=== PATIENT | female | born 1960 | race Caucasian/White ===

== ENCOUNTER → 2016-10-08 | Outpatient (REF) | payer OTHER ==
[2016-10-08 13:55] LABS: FREE T4 1.44 NG/DL (0.76-1.46)
== END ==
LOC: M LABDRAW1 12:44
PROVIDERS: ATTEND Family Medicine
DX: E03.9 Hypothyroidism, unspecified (principal)

== ENCOUNTER → 2016-10-24 | Outpatient (CLI) | payer BC, OTHER ==
--- NOTE | 2016-10-24 12:21 | REP ---
MRI COCCYX WITH AND WITHOUT CONTRAST: TECHNIQUE: Sagittal T1, STIR, coronal T1, T2 fat sat, axial T2, T1 fat sat, T2 fat sat, post IV gadolinium, sagittal and axial T1 fat sat with the intravenous administration of 11 mL of gadolinium. Correlation made with plain films at [facility] 10/17/2016. The distal end of the coccyx demonstrates mild ill-defined high signal on the T2-weighted images with mild associated marrow enhancement. There is mild surrounding soft tissue edema and enhancement. There is no soft tissue mass identified. No fluid collection is seen. Visualized intrapelvic structures appear unremarkable. IMPRESSION: There appears to be mild marrow edema in the distal end of the coccyx and mild surrounding soft tissue edema. No soft tissue mass. Findings are most consistent with stress related changes or bone bruise of the distal end of the coccyx. Signed by Michael Luu MD 10/25/2016 09:45 A
== END ==
LOC: M RAD 10:06
PROVIDERS: ATTEND Family Medicine
DX: M53.3 Sacrococcygeal disorders, not elsewhere classified (principal)
CPT/HCPCS: 72197; A9576

== ENCOUNTER → 2017-05-23 | Outpatient (CLI) | payer BC, OTHER ==
--- NOTE | 2017-05-23 15:09 | REPMRS ---
Patient History The patient states she has not had a clinical breast exam in over a year. No known family history of cancer. 2 benign excisional biopsies of the left breast. 2 benign excisional biopsies of the right breast. Benign stereotatic breast biopsy of the right breast. Digital Woman Screen Mammo: May 23, 2017 - Exam #: [id number] Bilateral CC and MLO view(s) were taken. Technologist: Laury Bush Technologist Prior study comparison: April 10, 2016, digital woman screen mammo performed at [facility]. February 18, 2015, digital woman screen mammo performed at [facility]. November 11, 2013, digital woman screen mammo performed at [facility]. FINDINGS: The breast tissue is heterogeneously dense. This may lower the sensitivity of mammography. There is a moderate amount of heterogeneously dense fibroglandular tissue which is fairly symmetric. There is no interval development of dominant mass, architectural distortion, or clustered microcalcification typical of malignancy. There has been no change in the appearance of the mammogram from the prior studies. ASSESSMENT: BI-RADS/ACR category 1 mammogram. Negative. Recommendation Routine screening mammogram of both breasts in 1 year (for women over age 40). This mammogram was interpreted with the aid of an FDA-approved computer-aided dectection system. Electronically Signed By: Brendon Siddiqui MD 05/23/17 0764
== END ==
LOC: M WHC 14:18
PROVIDERS: ATTEND Family Medicine
DX: Z12.31 Encounter for screening mammogram for malignant neoplasm of breast (principal)

== ENCOUNTER → 2017-06-19 | Outpatient (REF) | payer BC, OTHER ==
[2017-06-19 12:17] LABS: ALBUMIN 3.9 GM/DL (3.2-5.2); ALBUMIN/GLOBULIN RATIO 1.22 (1.00-1.93); ALKALINE PHOSPHATASE 97 U/L (45-117); ALT/SGPT 23 U/L (12-78); ANION GAP 7 MEQ/L (8-16); AST/SGOT 17 U/L (15-37); BILIRUBIN,TOTAL 0.5 MG/DL (0.2-1.0); BLOOD UREA NITROGEN 17 MG/DL (7-18); CALCIUM LEVEL 9.9 MG/DL (8.5-10.1); CARBON DIOXIDE LEVEL 26 MEQ/L (21-32); CHLORIDE LEVEL 108 MEQ/L (98-107); CHOLESTEROL LEVEL 156 MG/DL (<200); CREATININE FOR GFR 0.93 MG/DL (0.55-1.02); FREE T4 1.21 NG/DL (0.76-1.46); GLOMERULAR FILTRATION RATE > 60.0 (>51); GLUCOSE, FASTING 90 MG/DL (70-105); POTASSIUM SERUM 4.5 MEQ/L (3.5-5.1); SODIUM LEVEL 141 MEQ/L (136-145); TOTAL PROTEIN 7.1 GM/DL (6.4-8.2); TRIGLYCERIDES LEVEL 160 MG/DL (<150)
[2017-06-19 12:29] LABS: BASO # 0.1 10^3/uL (0.0-0.2); EOS # 0.1 10^3/uL (0.0-0.50); EOS % 2.5 % (0.0-3.0); IMMATURE GRANULOCYTE % 0.4 % (0-0); LYMPH # 1.7 10^3/uL (1.5-4.5); MEAN CORPUSCULAR HEMOGLOBIN 29.8 pg (27.0-33.0); MEAN CORPUSCULAR HGB CONC 32.2 g/dl (32.0-36.5); MEAN CORPUSCULAR VOLUME 92.8 fl (80.0-96.0); MONO # 0.3 10^3/uL (0.0-0.8); MONO % 5.8 % (0.0-5.0); NEUTROPHILS % 58.3 % (36.0-66.0); PLATELET COUNT, AUTOMATED 147 10^3/uL (150-450); RED CELL DISTRIBUTION WIDTH 14.5 % (11.5-14.5); WHITE BLOOD COUNT 5.2 10^3/uL (4.0-10.0)
== END ==
LOC: M LABDRAW1 10:29
PROVIDERS: ATTEND Family Medicine
DX: Z00.00 Encounter for general adult medical examination without abnormal findings (principal); I25.10 Atherosclerotic heart disease of native coronary artery without angina pectoris; E03.9 Hypothyroidism, unspecified

== ENCOUNTER → 2017-08-22 | Outpatient (REF) | payer BC, OTHER ==
[2017-08-22 13:03] LABS: FREE T4 1.31 NG/DL (0.76-1.46)
== END ==
LOC: M LABDRAW1 10:02
PROVIDERS: ATTEND Physician Assistant Medical
DX: E03.9 Hypothyroidism, unspecified (principal)

== ENCOUNTER 2017-11-28 14:21 | Emergency (ER) | payer BC, OTHER ==
[2017-11-28 15:32] LABS: BASO # 0.1 10^3/uL (0.0-0.2); BASO % 0.7 % (0.0-1.0); EOS # 0.2 10^3/uL (0.0-0.50); EOS % 3.1 % (0.0-3.0); HEMATOCRIT 41.6 % (36.0-47.0); HEMOGLOBIN 13.3 g/dl (12.0-16.0); IMMATURE GRANULOCYTE % 0.3 % (0-3.0); LYMPH # 1.5 10^3/uL (1.5-4.5); LYMPH % 22.7 % (24.0-44.0); MEAN CORPUSCULAR HEMOGLOBIN 29.2 pg (27.0-33.0); MEAN CORPUSCULAR VOLUME 91.4 fl (80.0-96.0); MONO # 0.5 10^3/uL (0.0-0.8); MONO % 7.7 % (0.0-5.0); NEUTROPHILS # 4.4 10^3/uL (1.8-7.7); NEUTROPHILS % 65.5 % (36.0-66.0); PLATELET COUNT, AUTOMATED 121 10^3/uL (150-450); RED BLOOD COUNT 4.55 10^6/uL (4.00-5.40); RED CELL DISTRIBUTION WIDTH 14.9 % (11.5-14.5); WHITE BLOOD COUNT 6.7 10^3/uL (4.0-10.0)
[2017-11-28 15:51] LABS: ANION GAP 7 MEQ/L (8-16); BLOOD UREA NITROGEN 15 MG/DL (7-18); CALCIUM LEVEL 9.3 MG/DL (8.5-10.1); CARBON DIOXIDE LEVEL 26 MEQ/L (21-32); CHLORIDE LEVEL 108 MEQ/L (98-107); CPK CREATINE PHOSPHOKINASE 74 U/L (26-192); CREATININE FOR GFR 1.07 MG/DL (0.55-1.30); GLOMERULAR FILTRATION RATE 55.9 (>51); GLUCOSE, FASTING 88 MG/DL (70-100); POTASSIUM SERUM 4.3 MEQ/L (3.5-5.1); SODIUM LEVEL 141 MEQ/L (136-145); TROPONIN I 0.04 NG/ML (< 0.10)
[2017-11-28 15:57] LABS: CK-MB VALUE MASS < 1.0 NG/ML (<3.6); MB/CK RELATIVE INDEX 1.35 (< OR =4)
[2017-11-28 15:59] LABS: NT-PRO BNP 281 PG/ML (<125)
[2017-11-28] MEDS: methylPREDNISolone INJ 125 MG/2 ML VIAL (J2930) IV (16:48)
[2017-11-28] MEDS: ALBUTEROL SULFATE 2.5 MG/0.5 ML INH NEB SOLN NEB (16:56)
[2017-11-28] MEDS ORDERED: ISOVUE-370 76% 100ML VIAL (Q9967) As Ordered (17:06)
== END 2017-11-28 19:47 | disposition home or self-care (01) ==
LOC: M ED 14:21
DX: J44.1 Chronic obstructive pulmonary disease with (acute) exacerbation (principal); R91.8 Other nonspecific abnormal finding of lung field; R05 Cough; I25.2 Old myocardial infarction; E03.9 Hypothyroidism, unspecified; G25.0 Essential tremor; Z95.5 Presence of coronary angioplasty implant and graft; F17.200 Nicotine dependence, unspecified, uncomplicated; Z88.5 Allergy status to narcotic agent; Z79.899 Other long term (current) drug therapy; Z79.02 Long term (current) use of antithrombotics/antiplatelets; Z79.82 Long term (current) use of aspirin
CPT/HCPCS: Q9967

== ENCOUNTER → 2017-12-02 | Outpatient (REF) | payer BC, OTHER ==
[2017-12-02 12:20] LABS: FREE T4 1.32 NG/DL (0.76-1.46)
== END ==
LOC: M LABDRAW1 09:30
DX: E03.9 Hypothyroidism, unspecified (principal)
CPT/HCPCS: 84443

== ENCOUNTER → 2017-12-26 | Outpatient (REF) | payer OTHER ==
[2017-12-26 14:00] LABS: CHOLESTEROL LEVEL 124 MG/DL (<200); CHOLESTEROL RISK RATIO 4.428 (<5); HDL CHOLESTEROL 28 MG/DL (>40); LDL CHOLESTEROL 71.8 MG/DL (<100); NON-HDL-C 96 MG/DL; TRIGLYCERIDES LEVEL 121 MG/DL (<150)
== END ==
LOC: M LABDRAW1 10:23
DX: E78.2 Mixed hyperlipidemia (principal); I25.10 Atherosclerotic heart disease of native coronary artery without angina pectoris

== ENCOUNTER → 2017-12-27 | Outpatient (CLI) | payer BC, OTHER | LOC: M RAD 08:43 | DX: I72.4 Aneurysm of artery of lower extremity (principal) ==

== ENCOUNTER → 2018-01-14 | Outpatient (REF) | payer BC, OTHER ==
[2018-01-14 13:14] LABS: FREE T4 1.13 NG/DL (0.76-1.46)
== END ==
LOC: M LABDRAW1 11:48
DX: E03.9 Hypothyroidism, unspecified (principal)
CPT/HCPCS: 84443

== ENCOUNTER → 2018-03-11 | Outpatient (REF) | payer OTHER ==
[2018-03-11 12:44] LABS: FREE T4 1.59 NG/DL (0.76-1.46)
[2018-03-11 12:44] LABS: THYROID STIMULATING HORMONE 0.922 uIU/ML (0.358-3.740)
== END ==
LOC: M LABDRAW1 10:19
DX: E03.9 Hypothyroidism, unspecified (principal)

== ENCOUNTER → 2018-03-11 | Outpatient (REF) | payer OTHER ==
[2018-03-11 12:36] LABS: ALT/SGPT 35 U/L (12-78); AST/SGOT 25 U/L (7-37); CHOLESTEROL LEVEL 108 MG/DL (<200); CHOLESTEROL RISK RATIO 3.724 (<5); CPK CREATINE PHOSPHOKINASE 73 U/L (26-192); HDL CHOLESTEROL 29 MG/DL (>40); LDL CHOLESTEROL 57.2 MG/DL (<100); NON-HDL-C 79 MG/DL; TRIGLYCERIDES LEVEL 109 MG/DL (<150)
== END ==
LOC: M LABDRAW1 10:17
DX: I25.10 Atherosclerotic heart disease of native coronary artery without angina pectoris (principal); E78.2 Mixed hyperlipidemia

== ENCOUNTER → 2018-06-06 | Outpatient (CLI) | payer BC, OTHER | LOC: M ST 11:24 | DX: R13.10 Dysphagia, unspecified (principal); K21.9 Gastro-esophageal reflux disease without esophagitis | CPT/HCPCS: 74230 ==

== ENCOUNTER → 2018-06-13 | Outpatient (REF) | payer BC, OTHER ==
[2018-06-13 13:01] LABS: FREE T4 1.46 NG/DL (0.76-1.46)
== END ==
LOC: M LABDRAW1 12:01
DX: E03.9 Hypothyroidism, unspecified (principal)
CPT/HCPCS: 84443

== ENCOUNTER → 2018-06-24 | Outpatient (CLI) | payer BC | LOC: M WHC 10:20 | DX: Z12.31 Encounter for screening mammogram for malignant neoplasm of breast (principal); M89.9 Disorder of bone, unspecified; Z92.89 Personal history of other medical treatment | CPT/HCPCS: 77067 ==

== ENCOUNTER → 2018-07-15 | Outpatient (REF) | payer OTHER ==
[2018-07-15 13:01] LABS: TOTAL 25(OH) VITAMIN D 23.7 NG/ML (30.0-100.0)
== END ==
LOC: M LABDRAW1 11:57
DX: M81.0 Age-related osteoporosis without current pathological fracture (principal)

== ENCOUNTER → 2018-12-15 | Outpatient (REF) | payer OTHER ==
[~2018-12-15] MED LIST: ASPI81TA26 PO; ATOR1TAB21; CARV3.12; CLOP75TA2 PO; LEVO75TA4; NORC1TAB7 PO; PRED20TA PO; TESS100C PO
[2018-12-15 11:59] LABS: BASO # 0.1 10^3/uL (0.0-0.2); EOS # 0.1 10^3/uL (0.0-0.50); EOS % 2.6 % (0.0-3.0); LYMPH # 1.4 10^3/uL (1.5-4.5); LYMPH % 26.7 % (24.0-44.0); MEAN CORPUSCULAR HEMOGLOBIN 29.7 pg (27.0-33.0); MEAN CORPUSCULAR HGB CONC 31.8 g/dl (32.0-36.5); MEAN CORPUSCULAR VOLUME 93.2 fl (80.0-96.0); MONO # 0.4 10^3/uL (0.0-0.8); MONO % 7.7 % (0.0-5.0); NEUTROPHILS # 3.2 10^3/uL (1.8-7.7); NEUTROPHILS % 61.8 % (36.0-66.0); PLATELET COUNT, AUTOMATED 129 10^3/uL (150-450); RED BLOOD COUNT 4.72 10^6/uL (4.00-5.40); WHITE BLOOD COUNT 5.1 10^3/uL (4.0-10.0)
[2018-12-15 12:34] LABS: ALBUMIN 3.8 GM/DL (3.2-5.2); ALT/SGPT 22 U/L (12-78); BILIRUBIN,TOTAL 0.5 MG/DL (0.2-1.0); BLOOD UREA NITROGEN 13 MG/DL (7-18); CALCIUM LEVEL 9.4 MG/DL (8.8-10.2); CARBON DIOXIDE LEVEL 28 MEQ/L (21-32); CHLORIDE LEVEL 105 MEQ/L (98-107); CHOLESTEROL LEVEL 118 MG/DL (<200); CHOLESTEROL RISK RATIO 3.933 (<5); CREATININE FOR GFR 0.97 MG/DL (0.55-1.30); FREE T4 1.38 NG/DL (0.76-1.46); GLOMERULAR FILTRATION RATE > 60.0 (>45); GLUCOSE, FASTING 90 MG/DL (70-100); HDL CHOLESTEROL 30 MG/DL (>40); LDL CHOLESTEROL 67 MG/DL (<100); NON-HDL-C 88 MG/DL; POTASSIUM SERUM 4.6 MEQ/L (3.5-5.1); SODIUM LEVEL 139 MEQ/L (136-145); THYROID STIMULATING HORMONE 0.497 uIU/ML (0.358-3.740); TRIGLYCERIDES LEVEL 106 MG/DL (<150)
== END ==
LOC: M LABDRAW1 11:37
PROVIDERS: ATTEND Physician Assistant
DX: E03.9 Hypothyroidism, unspecified (principal); I25.10 Atherosclerotic heart disease of native coronary artery without angina pectoris

== ENCOUNTER 2019-06-17 10:32 | Day surgery (SDC) | payer BC, OTHER ==
[~2019-06-17] VITALS: Ht 157.5 cm; Wt 49.0 kg
[~2019-06-17 10:32] MED LIST changes: -ATOR1TAB21; +ATOR1TAB21 PO; -CARV3.12; +CARV3.12 PO; +FAMO20TA PO; +LEVO100T5 PO; +LEVO88TA3 PO; +NITR0.4S14 SL; +NS 1,000 ML IV ONE
[2019-06-17] MEDS ORDERED: PROPOFOL 200 MG/20 ML VIAL As Ordered ONE (11:37)
[2019-06-17] MEDS ORDERED: LIDOCAINE 2% INJ 100 MG/5 ML SDV (FOR ANES.) As Ordered ONE (11:37)
--- NOTE | 2019-06-17 12:24 | ROOR ---
Patient Name: Debbi Don Procedure Date: 06/17/2019 11:48 AM Date of : 1960 Age: 58 Room: [facility] Gender: Female Note Status: Finalized Procedure: Upper Endoscopy + Biopsies Indications: Heartburn, Abdominal bloating, Early satiety Providers: Ubaldo Koehler MD Referring MD: Debbi Cervantes MD Requesting Provider: Medicines: Monitored Anesthesia Care Complications: No immediate complications. Procedure: Pre-Anesthesia Assessment: - The heart rate, respiratory rate, oxygen saturations, blood pressure, adequacy of pulmonary ventilation, and response to care were monitored throughout the procedure. The Endoscope was introduced through the mouth, and advanced to the second part of duodenum. The upper GI endoscopy was accomplished without difficulty. The patient tolerated the procedure well. Findings: The Z-line was regular and was found 40 cm from the incisors. Multiple biopsies were obtained with cold forceps for evaluation to rule out Patterson's Esophagus randomly at the gastroesophageal junction. Mucosal changes including ringed esophagus and crepe paper esophagus were found in the lower third of the esophagus. Biopsies were taken with a cold forceps for histology. Diffuse mildly erythematous mucosa without bleeding was found in the gastric antrum. Biopsies were taken with a cold forceps for Helicobacter pylori testing. The exam of the duodenum was otherwise normal. Impression: - Z-line regular, 40 cm from the incisors. - Esophageal mucosal changes suggestive of eosinophilic esophagitis. Biopsied. - Erythematous mucosa in the antrum. Biopsied. - Multiple biopsies were obtained at the gastroesophageal junction. - The examination was otherwise normal. Recommendation: - Patient has a contact number available for emergencies. The signs and symptoms of potential delayed complications were discussed with the patient. Return to normal activities tomorrow. Written discharge instructions were provided to the patient. - High fiber diet. - Discharge patient to home. - Follow an antireflux regimen. - Continue present medications. - Await pathology results. - Telephone GI clinic for pathology results in 1 week. - Return to referring physician. - The findings and recommendations were discussed with the patient's family. Ubaldo Koehler MD Ubaldo Koehler MD 06/17/2019 12:23:45 PM Electronically signed by Ubaldo Koehler MD Number of Addenda: 0 Note Initiated On: 06/17/2019 11:48 AM Estimated Blood Loss: Estimated blood loss: none.
--- NOTE | 2019-06-17 12:26 | ROOR ---
Patient Name: Debbi Don Procedure Date: 06/17/2019 11:49 AM Date of : 1960 Age: 58 Room: [facility] Gender: Female Note Status: Finalized Procedure: Total Colonoscopy to Cecum Indications: Screening for colorectal malignant neoplasm, Last colonoscopy: 2011 Providers: Ubaldo Koehler MD Referring MD: Debbi Cervantes MD Requesting Provider: Medicines: Monitored Anesthesia Care Complications: No immediate complications. Procedure: Pre-Anesthesia Assessment: - The heart rate, respiratory rate, oxygen saturations, blood pressure, adequacy of pulmonary ventilation, and response to care were monitored throughout the procedure. The Colonoscope was introduced through the anus and advanced to the cecum, identified by appendiceal orifice and ileocecal valve. The colonoscopy was performed without difficulty. The patient tolerated the procedure well. The quality of the bowel preparation was excellent. Findings: The perianal and digital rectal examinations were normal. Non-bleeding internal hemorrhoids were found during retroflexion. The hemorrhoids were small and Grade I (internal hemorrhoids that do not prolapse). No other significant abnormalities were identified in a careful examination of the remainder of the colon. The exam was otherwise without abnormality on direct and retroflexion views. Impression: - Non-bleeding internal hemorrhoids. - The examination was otherwise normal on direct and retroflexion views. - No specimens collected. - The exam was otherwise normal to the cecum. Recommendation: - Patient has a contact number available for emergencies. The signs and symptoms of potential delayed complications were discussed with the patient. Return to normal activities tomorrow. Written discharge instructions were provided to the patient. - High fiber diet. - Discharge patient to home. - Continue present medications. - Repeat colonoscopy in 10 years for screening purposes. - Return to referring physician. - The findings and recommendations were discussed with the patient's family. Ubaldo Koehler MD Ubaldo Koehler MD 06/17/2019 12:26:07 PM Electronically signed by Ubaldo Koehler MD Number of Addenda: 0 Note Initiated On: 06/17/2019 11:49 AM Estimated Blood Loss: Estimated blood loss: none.
[2019-06-17 12:55] VITALS: BP 110/78
== END 2019-06-17 13:15 | disposition home or self-care (01) ==
LOC: M OPP 10:32
PROVIDERS: ATTEND Internal Medicine Gastroenterology
DX: Z12.11 Encounter for screening for malignant neoplasm of colon (principal); K64.0 First degree hemorrhoids; R14.0 Abdominal distension (gaseous); R12 Heartburn; R13.10 Dysphagia, unspecified; R68.81 Early satiety; K22.8 Other specified diseases of esophagus; K31.89 Other diseases of stomach and duodenum; I25.10 Atherosclerotic heart disease of native coronary artery without angina pectoris; I25.2 Old myocardial infarction; I10 Essential (primary) hypertension; E78.5 Hyperlipidemia, unspecified; E03.9 Hypothyroidism, unspecified; Z95.5 Presence of coronary angioplasty implant and graft; R23.3 Spontaneous ecchymoses; K21.9 Gastro-esophageal reflux disease without esophagitis; M19.90 Unspecified osteoarthritis, unspecified site; J44.9 Chronic obstructive pulmonary disease, unspecified; Z87.891 Personal history of nicotine dependence; Z88.5 Allergy status to narcotic agent; Z79.82 Long term (current) use of aspirin; Z79.899 Other long term (current) drug therapy
CPT/HCPCS: 43239; 88305; G0121

== ENCOUNTER → 2019-06-25 | Outpatient (CLI) | payer BC, OTHER ==
[~2019-06-25] MED LIST changes: -NS 1,000 ML IV ONE
--- NOTE | 2019-06-25 13:57 | REP ---
Gastric emptying nuclear scintigraphy: History: Early satiety. Abdominal distension. Technique: 1.05 mCi of technetium-99m sulfur colloid was ingested in two scrambled eggs and 6 ounces of water and sequential anterior and posterior images are acquired for an 89-minute imaging observation period. Regions of interest are drawn around the stomach to plot gastric emptying. Scintigraphic findings: Expected T1/2 is 90 minutes. 45 % emptying is observed in this patient during the 89-minute imaging observation period, for a calculated T1/2 in this patient of 99 minutes. Impression: Normal gastric emptying. Electronically Signed by Markie Siddiqui MD 06/25/2019 01:48 P
== END ==
LOC: M RAD 08:36
PROVIDERS: ATTEND Internal Medicine Gastroenterology
DX: R68.81 Early satiety (principal); R14.0 Abdominal distension (gaseous); K64.0 First degree hemorrhoids
CPT/HCPCS: 78264; A9541

== ENCOUNTER → 2019-09-18 | Outpatient (CLI) | payer BC, OTHER ==
--- NOTE | 2019-09-18 11:44 | REPMRS ---
Patient History The patient states she has not had a clinical breast exam in over a year. No known family history of cancer. 2 benign excisional biopsies of the left breast. 2 benign excisional biopsies of the right breast. Benign stereotatic breast biopsy of the right breast. No Hormone Replacement Therapy Digital Woman Screen Mammo: September 18, 2019 - Exam #: [id number] Bilateral CC and MLO view(s) were taken. Technologist: Yael Torres, Technologist Prior study comparison: June 24, 2018, bilateral digital woman screen mammo performed at [facility]. May 23, 2017, digital woman screen mammo performed at [facility]. April 10, 2016, digital woman screen mammo performed at [facility]. FINDINGS: The breast tissue is heterogeneously dense. This may lower the sensitivity of mammography. There is a moderate amount of heterogeneously dense fibroglandular tissue which is fairly symmetric. There is no interval development of dominant mass, architectural distortion, or grouped microcalcification typical of malignancy. There has been no change in the appearance of the mammogram from the prior studies. 3-D tomosynthesis shows no additional findings. Assessment: BI-RADS/ACR category 1 mammogram. Negative Mammogram. Recommendation Routine screening mammogram of both breasts in 1 year (for women over age 40). This patient's Lifetime Breast Cancer RIsk is estimated at 7.1 %. This mammogram was interpreted with the aid of an FDA-approved computer-aided dectection system. Electronically Signed By: Brendon Siddiqui MD 09/18/19 0537
== END ==
LOC: M WHC 09:24
PROVIDERS: ATTEND Family Medicine
DX: Z12.31 Encounter for screening mammogram for malignant neoplasm of breast (principal)

== ENCOUNTER → 2019-10-10 | Outpatient (REF) | payer OTHER | LOC: M LAB REF 15:50 | PROVIDERS: ATTEND Physician Assistant | DX: N39.0 Urinary tract infection, site not specified (principal) ==

== ENCOUNTER 2019-12-14 13:30 | Emergency (ER) | payer BC, OTHER ==
[~2019-12-14] VITALS: Ht 160 cm; Wt 52.3 kg
[2019-12-14] MEDS ORDERED: ASPI325T55 PO (13:48)
[2019-12-14] MEDS ORDERED: ALBUTEROL 90 MCG/ACT 8GM HFA INHALER INH ONE (14:00)
[2019-12-14] MEDS ORDERED: NITROGLYCERIN 2% OINT 1 GM *U/D* PKT TOP ONE (14:00)
[2019-12-14 14:01] VITALS: BP 134/80
[2019-12-14 14:08] LABS: BASO # 0.1 10^3/uL (0.0-0.2); EOS # 0.2 10^3/uL (0.0-0.5); EOS % 2.5 % (0.0-3.0); HEMATOCRIT 43.7 % (36.0-47.0); LYMPH # 1.3 10^3/uL (1.5-5.0); LYMPH % 20.8 % (24.0-44.0); MEAN CORPUSCULAR HEMOGLOBIN 29.8 pg (27.0-33.0); MONO # 0.3 10^3/uL (0.0-0.8); MONO % 5.5 % (0.0-5.0); NEUTROPHILS # 4.2 10^3/uL (1.5-8.5); NEUTROPHILS % 69.9 % (36.0-66.0); PLATELET COUNT, AUTOMATED 163 10^3/uL (150-450)
[2019-12-14 14:19] LABS: INR 0.99; PROTHROMBIN TIME 12.8 SECONDS (11.8-14.0)
[2019-12-14 14:20] LABS: PARTIAL THROMBOPLASTIN TIME 33.1 SECONDS (25.0-38.4)
[2019-12-14] MEDS ORDERED: ISOVUE-370 76% 100ML VIAL (Q9967) As Ordered ONE (14:39)
[2019-12-14 14:43] LABS: ALBUMIN 3.8 GM/DL (3.2-5.2); ALT/SGPT 16 U/L (12-78); BILIRUBIN,DIRECT 0.1 MG/DL (0.0-0.2); BILIRUBIN,TOTAL 0.5 MG/DL (0.2-1.0); CK-MB VALUE MASS < 1.0 NG/ML (<3.6); CPK CREATINE PHOSPHOKINASE 67 U/L (26-192); LIPASE 102 U/L (73-393); MB/CK RELATIVE INDEX 1.49 (< OR =4); NT-PRO BNP 453 PG/ML (<125); THYROID STIMULATING HORMONE 0.106 uIU/ML (0.358-3.740); TROPONIN I < 0.02 NG/ML (< 0.10)
--- NOTE | 2019-12-14 14:47 | REP ---
PORTABLE CHEST X-RAY: Two views. HISTORY: Chest pain. COMPARISON CHEST X-RAY: November 28, 2017. FINDINGS: Lungs are somewhat hyperinflated consistent with COPD. No infiltrate is seen. Pleural angles are sharp. Heart is not enlarged. The aorta somewhat tortuous. Monitoring electrodes are seen. IMPRESSION: Hyperinflation consistent with COPD. No infiltrate seen. Electronically Signed by Markie Siddiqui MD 12/14/2019 03:06 P
[2019-12-14 15:34] LABS: FREE T4 1.59 NG/DL (0.76-1.46)
[2019-12-14] MEDS ORDERED: dexameTHASONE 20MG/5ML VIAL (J1100 PER 1MG) IV ONE (15:45)
--- NOTE | 2019-12-14 16:39 | REP ---
HISTORY: Pulmonary embolism suspected due to pain and COPD. COMPARISON: All reviewed. CONTRAST: 100 mL Isovue-370. There is excellent visualization of the pulmonary arterial vasculature. There is no pulmonary embolus. There is no mediastinal or hilar adenopathy. There are no pleural or pericardial effusions. There is no change in the imaged upper abdomen or imaged osseous structures. Evaluation of the lung kim show no changes. There is COPD with pulmonary nodules. IMPRESSION: No change from the prior exam. There is no evidence of pulmonary embolism. Electronically Signed by Avery Vang DO 12/14/2019 04:46 P
[2019-12-14 18:49] LABS: CK-MB VALUE MASS < 1.0 NG/ML (<3.6); CPK CREATINE PHOSPHOKINASE 61 U/L (26-192); MB/CK RELATIVE INDEX 1.64 (< OR =4); TROPONIN I < 0.02 NG/ML (< 0.10)
[2019-12-14 19:30] VITALS: BP 124/79
[2019-12-14] MEDS ORDERED: PRED20TA PO (19:54)
[2019-12-14] MEDS ORDERED: LEVO75TA4 PO (19:54)
--- NOTE | 2019-12-15 08:32 | ECGEPIP ---
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
--- NOTE | 2019-12-15 08:43 | ECGEPIP ---
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
== END 2019-12-14 20:04 | disposition home or self-care (01) ==
LOC: M ED 13:30
DX: J44.9 Chronic obstructive pulmonary disease, unspecified (principal); R07.89 Other chest pain; E03.9 Hypothyroidism, unspecified; I25.10 Atherosclerotic heart disease of native coronary artery without angina pectoris; K21.9 Gastro-esophageal reflux disease without esophagitis; Z87.891 Personal history of nicotine dependence; Z79.82 Long term (current) use of aspirin; Z79.899 Other long term (current) drug therapy; Z88.5 Allergy status to narcotic agent
CPT/HCPCS: 71045; 71275; 80047; 80076; 82550; 82553; 83690; 83880; 84439; 84443; 84484; 85025; 85610; 85730; 86140; 93005; 93041; 94640; 94760; 96374; 99285; J1100; Q9967

== ENCOUNTER → 2020-01-27 | Outpatient (REF) | payer OTHER ==
[~2020-01-27] MED LIST changes: +ASPI325T55 PO; +LEVO75TA4 PO
[2020-01-27 17:33] LABS: ALBUMIN 3.8 GM/DL (3.2-5.2); ALT/SGPT 23 U/L (12-78); BILIRUBIN,TOTAL 0.4 MG/DL (0.2-1.0); BLOOD UREA NITROGEN 12 MG/DL (7-18); CALCIUM LEVEL 9.4 MG/DL (8.8-10.2); CARBON DIOXIDE LEVEL 30 MEQ/L (21-32); CHLORIDE LEVEL 103 MEQ/L (98-107); CHOLESTEROL LEVEL 131 MG/DL (<200); CHOLESTEROL RISK RATIO 4.517 (<5); CREATININE FOR GFR 0.99 MG/DL (0.55-1.30); FREE T4 1.53 NG/DL (0.76-1.46); GLOMERULAR FILTRATION RATE > 60.0 (>45); GLUCOSE, FASTING 127 MG/DL (70-100); HDL CHOLESTEROL 29 MG/DL (>40); LDL CHOLESTEROL 74 MG/DL (<100); NON-HDL-C 102 MG/DL; POTASSIUM SERUM 4.3 MEQ/L (3.5-5.1); SODIUM LEVEL 139 MEQ/L (136-145); TRIGLYCERIDES LEVEL 141 MG/DL (<150)
== END ==
LOC: M LABDRWAD 16:17
PROVIDERS: ATTEND Nurse Practitioner Family
DX: E03.9 Hypothyroidism, unspecified (principal); J44.1 Chronic obstructive pulmonary disease with (acute) exacerbation; I25.10 Atherosclerotic heart disease of native coronary artery without angina pectoris

== ENCOUNTER → 2020-02-11 | Outpatient (REF) | payer OTHER ==
[2020-02-11 17:02] LABS: HEMATOCRIT 45.2 % (36.0-47.0); HEMOGLOBIN 14.5 g/dl (12.0-15.5); MEAN CORPUSCULAR HEMOGLOBIN 29.5 pg (27.0-33.0); MEAN CORPUSCULAR HGB CONC 32.1 g/dl (32.0-36.5); MEAN CORPUSCULAR VOLUME 91.9 fl (80.0-96.0); PLATELET COUNT, AUTOMATED 191 10^3/uL (150-450); RED BLOOD COUNT 4.92 10^6/uL (4.00-5.40); WHITE BLOOD COUNT 6.6 10^3/uL (4.0-10.0)
[2020-02-11 17:03] LABS: BLOOD UREA NITROGEN 11 MG/DL (7-18); CALCIUM LEVEL 9.4 MG/DL (8.8-10.2); CARBON DIOXIDE LEVEL 30 MEQ/L (21-32); CHLORIDE LEVEL 104 MEQ/L (98-107); CREATININE FOR GFR 0.91 MG/DL (0.55-1.30); GLOMERULAR FILTRATION RATE > 60.0 (>45); GLUCOSE, FASTING 88 MG/DL (70-100); MAGNESIUM LEVEL 2.3 MG/DL (1.8-2.4); POTASSIUM SERUM 4.8 MEQ/L (3.5-5.1); SODIUM LEVEL 137 MEQ/L (136-145)
== END ==
LOC: M LABDRWAD 16:16
PROVIDERS: ATTEND Nurse Practitioner Adult Health
DX: I25.119 Atherosclerotic heart disease of native coronary artery with unspecified angina pectoris (principal); I49.3 Ventricular premature depolarization; R00.2 Palpitations

== ENCOUNTER → 2020-02-12 | Outpatient (CLI) | payer BC, OTHER ==
--- NOTE | 2020-02-13 10:52 | REP ---
REASON FOR EXAM: Pain. No trauma. No priors. FINDINGS: No acute fracture or destructive osseous lesion. Electronically Signed by Avery Vang DO 02/15/2020 10:55 A
== END ==
LOC: M ADAMS 16:02
PROVIDERS: ATTEND Physician Assistant
DX: M79.604 Pain in right leg (principal)

== ENCOUNTER → 2020-08-30 | Outpatient (REF) | payer OTHER ==
[2020-08-30 13:44] LABS: ALBUMIN 3.6 GM/DL (3.2-5.2); BILIRUBIN,TOTAL 0.6 MG/DL (0.2-1.0); CALCIUM LEVEL 9.4 MG/DL (8.8-10.2); FREE T4 1.38 NG/DL (0.76-1.46); GLOMERULAR FILTRATION RATE 59.8 (>45); THYROID STIMULATING HORMONE 3.65 uIU/ML (0.358-3.740); TOTAL PROTEIN 6.9 GM/DL (6.4-8.2)
== END ==
LOC: M LABDRWAD 12:19
PROVIDERS: ATTEND Nurse Practitioner Family
DX: E03.9 Hypothyroidism, unspecified (principal)

== ENCOUNTER → 2020-09-19 | Outpatient (CLI) | payer BC ==
--- NOTE | 2020-09-19 14:54 | DEXAMM ---
INDICATION: M89.9 DISORDER OF BONE. COMPARISON: 06/24/2018 as well as other prior exams. TECHNIQUE: Bone density was measured using dual-energy x-ray absorptiometry (DEXA). FINDINGS: AP SPINE L1-L4 BMD 0.797 g/cm2 Young Adult T-Score -3.2 Age Matched Z-Score -1.9. LT FEMUR, TOTAL BMD 0.730 g/cm2 Young Adult T-Score -2.2 Age Matched Z-Score -1.2. LT NECK BMD 0.796 g/cm2 Young Adult T-Score -1.7 Age Matched Z-Score -0.4. RT FEMUR, TOTAL BMD 0.680 g/cm2 Young Adult T-Score -2.6 Age Matched Z-Score -1.6. RT NECK BMD 0.785 g/cm2 Young Adult T-Score -1.8 Age Matched Z-Score -0.5. IMPRESSION: There is osteoporosis of the spine. There is low bone density of the left hip. There is low bone density of the right hip. The density of the spine has decreased 30.1% since the initial exam on 11/13/2002. The density of the spine decrease 10.0% since most recent exam on 06/24/2018. The density of the left hip has decreased 27.9% since initial exam on 11/13/2002. The density of the left hip has decreased 8.8% since most recent exam on 06/24/2018. The density of the right hip has decrease 30.8% since the initial exam on 11/13/2002. The density of the right hip has decrease 6.1% since the most recent exam on 06/24/2018. FOLLOW-UP: Recommendation for the next bone density exam: 2 years. <Electronically signed by Michael Luu > 09/19/20 4555
--- NOTE | 2020-09-20 07:15 | REPMRS ---
Patient History The patient states she has not had a clinical breast exam in over a year. No known family history of cancer. 2 benign excisional biopsies of the left breast. 2 benign excisional biopsies of the right breast. Benign stereotatic breast biopsy of the right breast. No Hormone Replacement Therapy 3D TOMOSYNTHESIS WAS PERFORMED. The [facility] lifetime risk for breast cancer is 6.9%. Volpara breast density c. Digital Woman Screen Mammo: September 19, 2020 - Exam #: [id number] Bilateral CC and MLO view(s) were taken. Technologist: Shirlene Johnston, Technologist Prior study comparison: September 18, 2019, bilateral digital woman screen mammo performed at [facility]. June 24, 2018, bilateral digital woman screen mammo performed at [facility]. FINDINGS: The breast tissue is heterogeneously dense. This may lower the sensitivity of mammography. There has been no change in the appearance of the mammogram from the prior studies. There is a moderate amount of residual fibroglandular tissue which is fairly symmetric. There is no interval development of dominant mass, areas of architectural distortion, or clustered microcalcification typical of malignancy. Assessment: BI-RADS/ACR category 1 mammogram. Negative Mammogram. Recommendation Routine screening mammogram in 1 year (for women over age 40). This mammogram was interpreted with the aid of an FDA-approved computer-aided dectection system. Electronically Signed By: Michael Luu MD 09/19/20 1419
== END ==
LOC: M WHC 12:58
PROVIDERS: ATTEND Family Medicine
DX: Z12.31 Encounter for screening mammogram for malignant neoplasm of breast (principal); M81.0 Age-related osteoporosis without current pathological fracture

== ENCOUNTER 2020-09-24 09:54 | Emergency (ER) | payer BC, OTHER ==
[~2020-09-24] VITALS: Ht 160 cm; Wt 52.6 kg
[2020-09-24 10:22] LABS: BASO # 0.1 10^3/uL (0.0-0.2); BASO % 0.9 % (0.0-1.0); EOS # 0.1 10^3/uL (0.0-0.5); EOS % 2.7 % (0.0-3.0); HEMATOCRIT 44.1 % (36.0-47.0); HEMOGLOBIN 13.5 g/dl (12.0-15.5); LYMPH # 1.4 10^3/uL (1.5-5.0); LYMPH % 25.9 % (24.0-44.0); MEAN CORPUSCULAR HEMOGLOBIN 28.8 pg (27.0-33.0); MEAN CORPUSCULAR HGB CONC 30.6 g/dl (32.0-36.5); MONO # 0.3 10^3/uL (0.0-0.8); MONO % 5.9 % (0.0-5.0); NEUTROPHILS # 3.4 10^3/uL (1.5-8.5); NEUTROPHILS % 64.2 % (36.0-66.0); PLATELET COUNT, AUTOMATED 148 10^3/uL (150-450); RED BLOOD COUNT 4.69 10^6/uL (4.00-5.40); WHITE BLOOD COUNT 5.3 10^3/uL (4.0-10.0)
[2020-09-24] MEDS ORDERED: ALBU8.5H INH (10:22)
[2020-09-24] MEDS ORDERED: LEVO100T5 PO (10:22)
[2020-09-24] MEDS ORDERED: ATOR40TA75 PO (10:22)
--- NOTE | 2020-09-24 10:27 | REP ---
INDICATION: CHEST PAIN. COMPARISON: 12/14/2019. TECHNIQUE: SINGLE PORTABLE AP VIEW OF THE CHEST WAS PERFORMED. FINDINGS: Stable interstitial fibrotic changes are seen bilaterally. There is no acute infiltrate. The heart is normal in size. There is mild tortuosity of the thoracic aorta. The mediastinal silhouette is unchanged. There is slight elevation of left hemidiaphragm. IMPRESSION: Stable chronic findings with no evidence of acute pulmonary disease. <Electronically signed by Michael Luu > 09/24/20 1024
[2020-09-24] MEDS ORDERED: NITROGLYCERIN 0.4 MG SUBL TABLET As Ordered ONE (10:29)
[2020-09-24] MEDS ORDERED: fentaNYL 100 MCG/2 ML INJECTION (J3010) IV PRN (10:30)
[2020-09-24] MEDS: NITROGLYCERIN 0.4 MG SUBL TABLET SL PRN ×3 (10:33→10:47)
[2020-09-24] MEDS ORDERED: HEPARIN DRIP 25,000 UNITS in IV 1 EA IV SCH (10:35)
[2020-09-24] MEDS ORDERED: HEPARIN 25,000 UNITS/250 ML D5W BAG (100 UNITS/ML) (J1644 PER 1000UNITS) As Ordered ONE (10:39)
[2020-09-24] MEDS ORDERED: HEPARIN SOD (PORCINE) 5000UNITS/ML 1ML VIAL/SYRINGE IV ONE (10:45)
[2020-09-24 10:46] LABS: ALBUMIN 3.7 GM/DL (3.2-5.2); BILIRUBIN,DIRECT 0.1 MG/DL (0.0-0.2); BILIRUBIN,TOTAL 0.4 MG/DL (0.2-1.0); TOTAL PROTEIN 6.9 GM/DL (6.4-8.2)
[2020-09-24 10:59] VITALS: BP 130/75
[2020-09-24] MEDS ORDERED: NITROGLYCERIN 2% OINT 1 GM *U/D* PKT TOP ONE (11:00)
--- OUTSIDE RECORDS SUMMARY | 2020-09-24 11:03 | CCD | Continuity of Care Document ---
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 Name Role Phone Debbi Cervantes MD AUTM [phone] Problems Active Problems Provider Date Angina pectoris Reji Carbajal MD Onset: 12/31/2011 Coronary arteriosclerosis Reji Carbajal MD Onset: 012 Benign essential hypertension Reji Carbajal MD Onset: Acute ST segment elevation myocardial in farction involving left anterior descending coronary artery [place] NP Onset: 10/24/2015 Mixed hyperlipidemia [place] NP Onset: 10/24/2015 Cardiomyopathy, unspecified Nessa Davis MD Onset: 10/01 Screening for cardiovascular system disease Cal Contreras i Onset: 03/28/2018 Dyspnea Colette Jacobo NP Onset: 09/30/2018 Atherosclerotic heart disease of [place] coronary artery with unstable angina pectoris Colette Jacobo NP Onset: 09/30/2018 Chronic obstructive lung disease Colette Jacobo NP Onset: 09/30/2018 Abnormal results of cardiovascular function studies Cal Ramsay Onset: 10/02/2018 Preoperative cardiovascular examination Delmi Barber Onset: 04/06/2019 Palpitations Colette Jacobo NP Onset: 02/10/2020 Premature beats Colette Jacobo NP Onset: 02/10/2020 Dietary management surveillance Colette Jacobo NP Onset: 0 10/07/2019 Patient post percutaneous transluminal coronary angioplasty Colette Jacobo NP Onset: 10/07/2019 Social History Type Date Description Comments Sex Unknown Tobacco Use Start: Unknown End: Unknown Quit ETOH Use Denies alcohol use Tobacco Use Start: Unknown End: Unknown Patient is a former smoker Smoking Status Reviewed: 08/30/20 Patient is a former smoker Allergies, Adverse Reactions, Alerts Active Allergies Reaction Severity Comments Date Morphine 12/31/2011 Medications Active Medications SIG Qnty Indications Ordering Provide r Date Atorvastatin Calcium 40mg Tablets take one tablet by mouth at bedtime 90tabs Edilberto Barber 12/31/2017 Nitrostat 0.4mg Tablets Sub 1 tab under tongue, repeat q5 mins x2, as needed for chest pain 25tabs Cal Barber 01/24/2016 Aspirin 81mg Chewtabs 1 by mouth every day Reji Carbajal MD 10/24/2015 Carvedilol 3.125mg Tablets 1 by mouth twice a day 180tabs Cal Barber Levothyroxine Sodium 75mcg Tablets 1 by mouth every day Unknown Omeprazole 40mg Capsules DR 1 by mouth every day prn Unknown Magnesium 500mg Capsules 1 by mouth every day prn Unknown Florajen Acidophilus Capsules 1 by mouth every day Unknown Immunizations CPT Code Status Date Vaccine Lot # U-Flu Refused 02/10/2020 Influenza,Unspecified U-Pneum Refused 04/06/2019 Pneumococcal,Unspecified U-Flu Refused 04/06/2019 Influenza,Unspecified Vital Signs Date Vital Result Comment 08/31/2020 2:55pm Weight 112.00 lb Height 63 inches 5'3" BMI (Body Mass Index) 19.8 kg/m2 BSA (Body Surface Area) 1.51 m2 03/01/2020 11:45am BP Systolic Right Arm 112 mmHg BP Diastolic Right Arm 72 mmHg Heart Rate 74 /min Weight 110.38 lb Height 63 inches 5'3" BMI (Body Mass Index) 19.5 kg/m2 High Density Lipid 29 Low Density Lipid 74 01/27/20 Triglycerides 141 Total Cholesterol 131 BSA (Body Surface Area) 1.50 m2 Results Description No Information Available Procedures Description No Information Available Medical Devices Description No Information Available Encounters Type Date Location Provider Dx Diagnosis Office Visit 08/31/2020 8:45a [facility] Cal Yang I25.119 Athscl heart disease of marie ve cor art w unsp ang pctrs Z98.61 Coronary angioplasty status E78.2 Mixed hyperlipidemia I10 Essential (primary) hyperten tigist Assessments Date Code Description Provider 08/31/2020 I25.119 Atherosclerotic hear t disease of [place] coronary artery with unspecified angina pectoris Cal Barber 08/31/2020 Z98.61 Coronary angioplasty status Cal Yang 08/31/2020 E78.2 Mixed hyperlipidemia Cal Quintero 08/31/2020 I10 Essential (primary) hypertension Cal Barber Plan of Treatment Future Appointment(s):* 03/02/2021 9:30 am - Colette Jacobo NP at [facility] 12/11/2017 - [facility] I25.10 Athscl heart disease of [place] coronary artery w/o ang pctrs * E78.2 Mixed hyperlipidemia * I10 Essential (primary) hypertension* New Labs:* Lipid, Ordered: 12/11/17 Functional Status Description No Information Available Mental Status Description No Information Available Referrals Description No Information Available
--- OUTSIDE RECORDS SUMMARY | 2020-09-24 11:03 | CCD ---
Continuity of Care Document (CCD) Created on: 08/31/2020 Debbi Don External Reference #: [id number] : [id number] Sex: Female Author Author Debbi RODRIGUEZ [facility] Organization Unknown Address [address] [place] [address] Phone [phone] Care Team Providers Care Electorate Officer Name Role Phone Ubaldo Koehler M.D. & Associate AUTM [phone] Sia Ayon M.D. AUTM [phone] Reji Carbajal MD AUTM [phone] AUTM [phone] Tim Cobb DPM AUTM [phone] Problems Active Problems Provider Date Hypothyroidism Debbi Cervantes M.D. Onset: 02/07/20 11 Social History Type Date Description Comments Sex Unknown Tobacco Use Start: Unknown Never Used Smokeless Tobacco ETOH Use Rarely consumes alcohol Recreational Drug Use Denies Drug Use Tobacco Use Start: Unknown End: Unknown Patient is a former smoker quit 10/08/15 after having a heart attack. Smoked 3/4 ppd x 40 years Smoking Status Reviewed: 07/27/20 Patient is a former smoker qu it 10/08/15 after having a heart attack. Smoked 3/4 ppd x 40 years Exercise Type/Frequency Exercises regularly trie s to walk several times a week Tattoo/Piercing Tattoo 1 Tattoo/Piercing Pierced ears Sun Exposure Minimum amount of sun exposure Sun Exposure Does not use sunscreen Seat Belt/Car Seat Always uses seat belt Bike Helmet Never Does not bike ri de Smoke Alarms Yes Smoke Alarms Carbon Monoxide Detector: Yes Allergies, Adverse Reactions, Alerts Active Allergies Reaction Severity Comments Date Morphine vomiting, hot feeling, low pulse rate 10/25/2010 Medications Active Medications SIG Qnty Indications Ordering Provide r Date Fluticasone Propionate Nasal [place] Aller gy Relief 24- Hour 50mcg/Act Suspension 2 sprays each nare daily as needed 9.900ml J30.9 Irene Rodriguez FNP 02/05/2020 Levothyroxine Sodium 75mcg Tablets 1 by mouth every day 90tabs E03.9 Irene Rodriguez FNP 12/15/2019 Hydroxyzine HCL 10mg Tablets 1-2 tab by mouth three times a day as needed anxiety 60tabs F43.22 Irene Mcgill ch, FNP 12/15/2019 Calcium 600 High Potency 600mg Tab lets one po bid Debbi Cervantes M.D. 018 Vitamin D-3 1000Unit Capsules 1 by mouth bid Debbi Cervantes M.D. 018 Aspir-[address] 1 by mouth every day Unknown Carvedilol 3.125mg Tablets 1 tab by mouth twice a day Unknown Nitroglycerin Tablets one every 5 min. SL for chest pain Unknown Atorvastatin Calcium 40mg Tablets take one tablet by mouth every day for cholesterol Unknow n Proair HFA 108(90Base) mcg/Act Aer osol 2 puffs every 4 hours as needed 8.500gm Debbi Cervantes M.D. Eq Omeprazole Magnesium 20mg Capsu les DR Take one capsule by mouth daily as needed Unknow n History Medications Amoxicillin 875mg Tablets 1 by mouth twice a day x 10 days 20tabs J01.90 Debbi Cervantes M.D. 020 - 07/29/2020 Immunizations Description No Information Available Vital Signs Date Vital Result Comment 07/27/2020 9:53am BP Systolic 131 mmHg BP Diastolic 82 mmHg Heart Rate 85 /min Body Temperature 97.2 F Respiratory Rate 16 /min Height 63.25 inches 5'3.25" Weight 115.00 lb Peak Expiratory Flow Rate 332 Estimated Peak Flow Rate [place] Body Weight 115 lb BMI (Body Mass Index) 20.2 kg/m2 07/19/2020 9:09am BP Systolic 142 mmHg BP Diastolic 87 mmHg BP Systolic Recheck 136 mmHg BP Diastolic Recheck 90 mmHg Heart Rate 92 /min Body Temperature 97.3 F Respiratory Rate 16 /min Height 63.25 inches 5'3.25" Weight 113.38 lb O2 % BldC Oximetry 96 % Peak Expiratory Flow Rate 332 Estimated Peak Flow Rate [place] Body Weight 115 lb BMI (Body Mass Index) 19.9 kg/m2 Results Test Acquired Date Facility Test Result H/L Range Note Comprehensive Metabolic Profil 08/30/2020 [facility] [phone] Glucose, Fasting 90 mg/dL Normal 70-100 Blood Urea Nitrogen 12 mg/dL Normal 7-18 Creatinine For GFR 1.00 mg/dL Normal 0.55-1.30 Glomerular Filtration Rate 59.8 Normal >45 1 Sodium Level 139 mEq/L Normal 136-145 Potassium Serum 5.0 mEq/L Normal 3.5-5.1 Chloride Level 107 mEq/L Normal 98-107 Carbon Dioxide Level 27 mEq/L Normal 21-32 Anion Gap 5 mEq/L Low 8-16 Calcium Level 9.4 mg/dL Normal 8.8-10.2 Ast/Sgot 9 U/L Normal 7-37 Alt/SGPT 16 U/L Normal 12-78 Alkaline Phosphatase 131 U/L High 45-117 Bilirubin,Total 0.6 mg/dL Normal 0.2-1.0 Total Protein 6.9 GM/DL Normal 6.4-8.2 Albumin 3.6 GM/DL Normal 3.2-5.2 Albumin/Globulin Ratio 1.1 Low 1.2-2.2 FT4&TSH Panel 08/30/2020 [facility] [phone] Thyroid Stimulating Hormone 3.650 uIU/ML Normal 0. 358-3.740 Free T4 1.38 ng/dL Normal 0.76-1.46 1 Units are mL/min/1.73 m2 Chronic Kidney Disease Staging per NKF: Stage I & II GFR >=60 Normal to Mildly Decreased Stage III GFR 30-59 Moderately Decreased Stage IV GFR 15-29 Severely Decreased Stage V GFR <15 Very Little GFR Left ESRD GFR <15 on [employer] Procedures Date Code Description Status 09/18/2019 [id number] Mammogram Completed 06/24/2018 [id number] Mammogram Completed 06/24/2018 [id number] Bone Mineral Density Test Comple paula 05/23/2017 [id number] Mammogram Completed 04/10/2016 [id number] Mammogram Completed Medical Devices Description No Information Available Encounters Type Date Location Provider Dx Diagnosis Office Visit 07/27/2020 9:45a Main Office Debbi Cervantes M.D. J 34.89 Other specified disorders of nose and nasal sinuses Office Visit 07/19/2020 9:00a Main Office Debbi Cervantes M.D. E 03.9 Hypothyroidism, unspecified J44.9 Chronic obstructive pulmonar y disease, unspecified F43.22 Adjustment disorder with anx iety J01.90 Acute sinusitis, unspecified Z00.00 Encntr for general adult med ical exam w/o abnormal findings Assessments Date Code Description Provider 07/27/2020 J34.89 Other specified disorders of nos e and nasal sinuses Debbi Cervantes M.D. 07/19/2020 E03.9 Hypothyroidism, unspecified Will Debbi villatoro M.D. 07/19/2020 J44.9 Chronic obstructive pulmonary di sease, unspecified Debbi Cervantes M.D. 07/19/2020 F43.22 Adjustment disorder with anxiety Debbi Cervantes M.D. 07/19/2020 J01.90 Acute sinusitis, unspecified Rush Debbi hernández M.D. 07/19/2020 Z00.00 Encounter for [facility] adult medical examination without abnormal findings Debbi Cervantes M.D. Plan of Treatment 07/27/2020 - Debbi Cervantes M.D.* J34.89 Other specified disorders of nose and nasal sinuses* Comments:* s/p sinus surgeries. Slight inflamed, but already on ABX. Recommend Tylenol and ice packs for supportive care. If persists will have to refer back to ENT. Functional Status Functional Condition Comment Date Status Complete lower and upper and lower dentures Active Independent with all ADL's Activ e Bifocal glasses Active Mental Status Mental Condition Comment Date Status None Active Referrals Description No Information Available
--- OUTSIDE RECORDS SUMMARY | 2020-09-24 11:03 | CCD | Continuity of Care Document ---
Author Author Debbi HERNANDEZ M.D. Organization Unknown Address [address] [place] [address] Phone [phone] Care Team Providers Care Weight Recorder Name Role Phone Ubaldo Koehler M.D. & Associate AUTM [phone] Sia Ayon M.D. AUTM [phone] Reji Carbajal MD AUTM [phone] AUTM [phone] Tim Cobb DPM AUTM [phone] Problems Active Problems Provider Date Hypothyroidism Debbi Hernandez M.D. Onset: 02/07/20 11 Social History Type [...] Ordering Provide r Date Fluticasone Propionate Nasal [place] Aller gy Relief 24- Hour 50mcg/Act Suspension [...] 600mg Tab lets one po bid Debbi Hernandez M.D. 018 Vitamin D-3 1000Unit Capsules 1 by mouth bid Debbi Hernandez M.D. 018 Aspir-[address] 1 [...] every 4 hours as needed 8.500gm Debbi Hernandez M.D. Eq Omeprazole Magnesium 20mg Capsu les DR Take one capsule by mouth daily as needed Unknow n History Medications Amoxicillin 875mg Tablets 1 by mouth twice a day x 10 days 20tabs J01.90 Debbi Hernandez M.D. 020 - 07/29/2020 Immunizations Description No Information Available Vital Signs Date Vital Result Comment 07/27/2020 9:53am BP Systolic 131 mmHg BP Diastolic 82 mmHg Heart Rate 85 /min Body Temperature 97.2 F Respiratory Rate 16 /min Height 63.25 inches 5'3.25" Weight 115.00 lb Peak Expiratory Flow Rate 332 Estimated Peak Flow Rate [place] Body Weight 115 lb BMI (Body Mass [...] Flow Rate 332 Estimated Peak Flow Rate [place] Body Weight 115 lb BMI (Body Mass Index) 19.9 kg/m2 Results Description No Information Available Procedures Date Code Description Status 09/18/2019 [id number] Mammogram Completed 06/24/2018 [id number] Mammogram Completed 06/24/2018 [id number] Bone Mineral Density Test Comple paula 05/23/2017 [id number] Mammogram Completed 04/10/2016 [id number] Mammogram Completed Medical Devices Description No Information Available Encounters Type Date Location Provider Dx Diagnosis Office Visit 07/27/2020 9:45a Main Office Debbi Hernandez M.D. J 34.89 Other specified disorders of nose and nasal sinuses Office Visit 07/19/2020 9:00a Main Office Debbi Hernandez M.D. E 03.9 Hypothyroidism, unspecified J44.9 Chronic obstructive pulmonar y disease, unspecified F43.22 Adjustment disorder with anx iety J01.90 Acute sinusitis, unspecified Z00.00 Encntr for general adult med ical exam w/o abnormal findings Office Visit 02/05/2020 11:30a Main Office Irene Rodriguez FNP J44.9 Chronic obstructive pulmonary disease, unspecified E03.9 Hypothyroidism, unspecified F43.22 Adjustment disorder with anx iety J30.9 Allergic rhinitis, unspecifi ed I25.10 Athscl heart disease of [place] coronary artery w/o ang pctrs Assessments Date Code Description Provider 07/27/2020 J34.89 Other specified disorders of nos e and nasal sinuses Debbi Hernandez M.D. 07/19/2020 E03.9 Hypothyroidism, unspecified Will Debbi villatoro M.D. 07/19/2020 J44.9 Chronic obstructive pulmonary di sease, unspecified Debbi Hernandez M.D. 07/19/2020 F43.22 Adjustment disorder with anxiety Debbi Hernandez M.D. 07/19/2020 J01.90 Acute sinusitis, unspecified Rush Debbi hernández M.D. 07/19/2020 Z00.00 Encounter for genera l adult medical examination without abnormal findings Debbi Hernandez M.D. 02/05/2020 J44.9 Chronic obstructive pulmonary di sease, unspecified Irene Rodriguez, [facility] 02/05/2020 E03.9 Hypothyroidism, unspecified Ples keriIrene marino, [facility] 02/05/2020 F43.22 Adjustment disorder with anxiety Irene Rodriguez [facility] 02/05/2020 J30.9 Allergic rhinitis, unspecified P Irene parry, [facility] 02/05/2020 I25.10 Atherosclerotic hear t disease of [place] coronary artery without angina pectoris Irene Rodriguez, [facility] Plan of Treatment 07/27/2020 - Debbi Hernandez M.D.* J34.89 Other specified disorders of nose [...]
--- OUTSIDE RECORDS SUMMARY | 2020-09-24 11:04 | CCD | Continuity of Care Document ---
Author Author Debbi HERNANDEZ M.D. Organization Unknown Address [address] [place] [address] Phone [phone] Care Team Providers Care Financial Reserve Clerk Name Role Phone Ubaldo Koehler M.D. & Associate AUTM Sia Ayon M.D. AUTM [phone] Reji Carbajal MD AUTM [phone] AUTM [phone] Tim Cobb DPM AUTM [phone] Problems Active Problems Provider Date Hypothyroidism Debbi [...] ppd x 40 years Smoking Status Reviewed: 07/19/20 Patient is a former smoker qu it [...] SIG Qnty Indications Ordering Provide r Date Amoxicillin 875mg Tablets 1 by mouth twice a day x 10 days 20tabs J01.90 Debbi Hernandez M.D. 020 Fluticasone Propionate Nasal [place] Aller gy Relief 24- Hour 50mcg/Act Suspension [...] Hernandez M.D. Eq Omeprazole Magnesium 20mg Capsu beny ROJAS Take one capsule by mouth daily as needed Unknow n Immunizations Description No Information Available Vital Signs Date Vital Result Comment 07/19/2020 9:09am BP Systolic 142 mmHg BP Diastolic 87 mmHg BP Systolic Recheck 136 mmHg BP Diastolic Recheck 90 mmHg Heart Rate 92 /min Body Temperature 97.3 F Respiratory Rate 16 /min Height 63.25 inches 5'3.25" Weight 113.38 lb O2 % BldC Oximetry 96 % Peak Expiratory Flow Rate 332 Estimated Peak Flow Rate [place] Body Weight 115 lb BMI (Body Mass Index) 19.9 kg/m2 07/23/2019 11:28am BP Systolic 117 mmHg BP Diastolic 76 mmHg Heart Rate 79 /min Body Temperature 97.3 F Respiratory Rate 16 /min Height 63.25 inches 5'3.25" Weight 112.38 lb O2 % BldC Oximetry 98 % Peak Expiratory Flow Rate 334 Estimated Peak Flow Rate [place] Body Weight 115 lb BMI (Body Mass Index) 19.7 kg/m2 Results Test Acquired Date Facility Test Result H/L Range Note Comprehensive Metabolic Profil 01/27/[address] [place] [address] [phone] Glucose, Fasting 127 mg/dL High 70-100 Blood Urea Nitrogen 12 mg/dL Normal 7-18 Creatinine For GFR 0.99 mg/dL Normal 0.55-1.30 Glomerular Filtration Rate > 60.0 Normal >45 1 Sodium Level 139 mEq/L Normal 136-145 Potassium Serum 4.3 mEq/L Normal 3.5-5.1 Chloride Level 103 mEq/L Normal 98-107 Carbon Dioxide Level 30 mEq/L Normal 21-32 Anion Gap 6 mEq/L Low 8-16 Calcium Level 9.4 mg/dL Normal 8.8-10.2 Ast/Sgot 16 U/L Normal 7-37 Alt/SGPT 23 U/L Normal 12-78 Alkaline Phosphatase 154 U/L High 45-117 Bilirubin,Total 0.4 mg/dL Normal 0.2-1.0 Total Protein 7.0 GM/DL Normal 6.4-8.2 Albumin 3.8 GM/DL Normal 3.2-5.2 Albumin/Globulin Ratio 1.2 Normal 1.2-2.2 Lipid Panel 01/27/2020 [place] [address] [phone] Triglycerides Level 141 mg/dL Normal <150 Cholesterol Level 131 mg/dL Normal <200 HDL Cholesterol 29 mg/dL Low >40 LDL Cholesterol 74 mg/dL Normal <100 Non-HDL-C 102 mg/dL Normal Cholesterol Risk Ratio 4.517 Normal <5 FT4&TSH Panel 01/27/2020 [place] [address] [phone] Thyroid Stimulating Hormone 2.950 uIU/ML Normal 0. 358-3.740 Free T4 1.53 ng/dL High 0.76-1.46 1 Units are mL/min/1.73 m2 Chronic Kidney Disease Staging per NKF: Stage I & II GFR >=60 Normal to Mildly Decreased Stage III GFR 30-59 Moderately Decreased Stage IV GFR 15-29 Severely Decreased Stage V GFR <15 Very Little GFR Left ESRD GFR <15 on [employer] Procedures Date Code Description Status 09/18/2019 [id number] Mammogram Completed 06/24/2018 [id number] Mammogram Completed 06/24/2018 [id number] Bone Mineral Density Test Comple paula 05/23/2017 [id number] Mammogram Completed 04/10/2016 [id number] Mammogram Completed Medical Devices Description No Information Available Encounters Type Date Location Provider Dx Diagnosis Office Visit 07/19/2020 9:00a Main Office Debbi [...] ang pctrs Assessments Date Code Description Provider 07/19/2020 E03.9 Hypothyroidism, unspecified Will Debbi villatoro M.D. 07/19/2020 J44.9 Chronic obstructive pulmonary di sease, unspecified Debbi Hernandez M.D. 07/19/2020 F43.22 Adjustment disorder with anxiety Debbi Hernandez M.D. 07/19/2020 J01.90 Acute sinusitis, unspecified Rush Debbi hernández M.D. 07/19/2020 Z00.00 Encounter for [facility] adult medical examination without abnormal findings Debbi Hernandez M.D. 02/05/2020 J44.9 Chronic obstructive pulmonary di sease, unspecified Irene Rodriguez FNP 02/05/2020 E03.9 Hypothyroidism, unspecified Ples Irene trinidad FNP 02/05/2020 F43.22 Adjustment disorder with anxiety Irene Rodriguez FNP 02/05/2020 J30.9 Allergic rhinitis, unspecified P Irene parry, [place] 02/05/2020 I25.10 Atherosclerotic hear t disease of [place] coronary artery without angina pectoris Irene Rodriguez FNP Plan of Treatment 07/19/2020 - Debbi Hernandez M.D.* E03.9 Hypothyroidism, unspecified* Comments:* stable on meds. * J44.9 Chronic obstructive pulmonary disease, unspecified * F43.22 Adjustment disorder with anxiety* Comments:* She is doing wel overall, no changes. * J01.90 Acute sinusitis, unspecified* New Medication:* Amoxicillin 875 mg - 1 by mouth twice a day x 10 days * Z00.00 Encounter for general adult medical examination without abnormal findings* Comments:* RHM current. Functional Status Functional Condition Comment Date Status Complete lower and upper and lower dentures Active Independent with all ADL's Activ e Bifocal glasses Active Mental Status Mental Condition Comment Date Status None Active Referrals Description No Information Available
--- OUTSIDE RECORDS SUMMARY | 2020-09-24 11:04 | CCD | Continuity of Care Document ---
Author Author Debbi HERNANDEZ M.D. Organization Unknown Address [address] [place] [address] Phone [phone] Care Team Providers Care Motorcycle Mechanic Apprentice Name Role Phone Ubaldo Koehler M.D. & Associate AUTM Sia Ayon M.D. AUTM [phone] Reji Carbajal MD AUTM [phone] AUTM [phone] Tim Cobb DPM AUTM [phone] Problems Active Problems Provider Date Hypothyroidism Debbi [...] Debbi Hernandez M.D. 020 Fluticasone Propionate Nasal [place] Aller gy Relief 24- Hour 50mcg/Act Suspension [...] Flow Rate 332 Estimated Peak Flow Rate [place] Body Weight 115 lb BMI (Body Mass Index) 19.9 kg/m2 07/23/2019 11:28am BP Systolic 117 mmHg BP Diastolic 76 mmHg Heart Rate 79 /min Body Temperature 97.3 F Respiratory Rate 16 /min Height 63.25 inches 5'3.25" Weight 112.38 lb O2 % BldC Oximetry 98 % Peak Expiratory Flow Rate 334 Estimated Peak Flow Rate [place] Body Weight 115 lb BMI (Body Mass Index) 19.7 kg/m2 Results Test Acquired Date Facility Test Result H/L Range Note Comprehensive Metabolic Profil 01/27/2020 [place] [address] [phone] Glucose, Fasting 127 mg/dL High 70-100 Blood [...] Normal 1.2-2.2 Lipid Panel 01/27/2020 [place] [address] [phone] Triglycerides Level 141 mg/dL Normal <150 Cholesterol Level 131 mg/dL Normal <200 HDL Cholesterol 29 mg/dL Low >40 LDL Cholesterol 74 mg/dL Normal <100 Non-HDL-C 102 mg/dL Normal Cholesterol Risk Ratio 4.517 Normal <5 FT4&TSH Panel 01/27/2020 [place] [address] [phone] Thyroid Stimulating Hormone 2.950 uIU/ML Normal 0. 358-3.740 Free T4 1.53 ng/dL High 0.76-1.46 1 Units are mL/min/1.73 m2 Chronic Kidney Disease Staging per NKF: Stage I & II GFR >=60 Normal to Mildly Decreased Stage III GFR 30-59 Moderately Decreased Stage IV GFR 15-29 Severely Decreased Stage V GFR <15 Very Little GFR Left ESRD GFR <15 on [employer] Procedures Date Code Description Status 09/18/2019 [id number] Mammogram Completed 06/24/2018 [id number] Mammogram Completed 06/24/2018 [id number] Bone Mineral Density Test Comple paula 05/23/2017 [id number] Mammogram Completed 04/10/2016 [id number] Mammogram Completed Medical Devices Description No Information Available Encounters Type Date Location Provider Dx Diagnosis Office Visit 02/05/2020 11:30a Main Office Irene [...] obstructive pulmonary di sease, unspecified Irene Rodriguez, [place] 02/05/2020 E03.9 Hypothyroidism, unspecified Ples Irene trinidad FNP 02/05/2020 F43.22 Adjustment disorder with anxiety Irene Rodriguez FNP 02/05/2020 J30.9 Allergic rhinitis, unspecified P Irene parry FNP 02/05/2020 I25.10 Atherosclerotic hear t disease of [place] coronary artery without angina pectoris Irene Rodriguez FNP Plan of Treatment 07/19/2020 - Debbi Hernandez M.D.* E03.9 Hypothyroidism, unspecified * J44.9 Chronic obstructive pulmonary disease, unspecified * F43.22 Adjustment disorder with anxiety * J01.90 Acute sinusitis, unspecified* New Medication:* Amoxicillin 875 mg - 1 by mouth twice a day x 10 days * Z00.00 Encounter for general adult medical examination without abnormal findings Functional Status Functional Condition Comment Date Status Complete lower and upper and lower dentures Active Independent with all ADL's Activ e Bifocal glasses Active Mental Status Mental Condition Comment Date Status None Active Referrals Description No Information Available
--- OUTSIDE RECORDS SUMMARY | 2020-09-24 11:04 | CCD | Continuity of Care Document ---
Author Author Debbi FORD PA-C Organization Unknown Address [address] [place] [address] Phone [phone] Care Team Providers Care Senior Automation Engineer Name Role Phone Debbi Cervantes MD [facility] [phone] Problems Description No Information Available Social History Type Date Description Comments Sex Unknown ETOH Use Denies alcohol use Tobacco Use Start: Unknown End: Unknown Patient is a former smoker Smoking Status Reviewed: 07/28/19 Patient is a former smoker Allergies, Adverse Reactions, Alerts Active Allergies Reaction Severity Comments Date Morphine 02/13/2019 Medications Active Medications SIG Qnty Indications Ordering Provide r Date Atorvastatin Calcium 40mg Tablets Take One Tablet By Mouth AT Bedtime Unknown Levothyroxine Sodium 100mcg Tablets Yuliya Nickerson PA Carvedilol 3.125mg Tablets Unknown Clopidogrel Bisulfate 75mg Tablets Unknown Aspirin [address] Unknown Nitroglycerin 0.4mg Tablets Sub Unknown Omeprazole 40mg Capsules DR Unknown Immunizations Description No Information Available Vital Signs Date Vital Result Comment 07/28/2019 9:17am Body Temperature 98.1 F Height 62.5 inches 5'2.50" Weight 112.00 lb BMI (Body Mass Index) 20.2 kg/m2 02/13/2019 2:09pm Body Temperature 99.0 F Height 63.5 inches 5'3.50" Weight 120.00 lb BMI (Body Mass Index) 20.9 kg/m2 Results Description No Information Available Procedures Date Code Description Status 06/17/2020 Inject/Drain Joint/Bursa Major C ompleted 06/17/2020 Inject/Drain Joint/Bursa Small C ompleted Medical Devices Description No Information Available Encounters Description No Information Available Assessments Date Code Description Provider 06/17/2020 M75.41 Impingement syndrome of right sh jolene Ford PA-C 06/17/2020 M19.011 Primary osteoarthritis, right sh jolene Ford PA-C Plan of Treatment 02/13/2019 - DAYANNA Mittal* S90.01xA Contusion of right ankle, initial encounter* Follow up:* f/u in 4 weeks for right ankle recheck. Functional Status Description No Information Available Mental Status Description No Information Available Referrals Description No Information Available
--- OUTSIDE RECORDS SUMMARY | 2020-09-24 11:04 | CCD | Continuity of Care Document ---
Author Author Debbi HERNANDEZ M.D. Organization Unknown Address [address] [place] [address] Phone [phone] Care Team Providers Care Welt Rander Name Role Phone Ubaldo Koehler M.D. & Associate AUTM [phone] Sia Ayon M.D. AUTM [phone] Reji Carbajal MD AUTM [phone] AUTM [phone] Tim Cobb DPM AUTM [phone] Problems Active Problems Provider Date Hypothyroidism Debbi [...] Debbi Hernandez M.D. 020 Fluticasone Propionate Nasal [place] [facility] Relief 24- Hour 50mcg/Act Suspension [...] Flow Rate 332 Estimated Peak Flow Rate [place] Body Weight 115 lb BMI (Body Mass Index) 20.2 kg/m2 07/19/2020 9:09am BP Systolic 142 mmHg BP Diastolic 87 mmHg BP Systolic Recheck 136 mmHg BP Diastolic Recheck 90 mmHg Heart Rate 92 /min Body Temperature 97.3 F Respiratory Rate 16 /min Height 63.25 inches 5'3.25" Weight 113.38 lb O2 % dC Oximetry 96 % Peak Expiratory Flow Rate 332 Estimated Peak Flow Rate [place] Body Weight 115 lb BMI (Body Mass Index) 19.9 kg/m2 Results Test Acquired Date Facility Test Result H/L Range Note Comprehensive Metabolic Profil 01/27/[address] [place] [address] [phone] Glucose, Fasting 127 mg/dL High 70-100 Blood [...] Normal 1.2-2.2 Lipid Panel 01/27/2020 [place] [address] [phone] Triglycerides Level 141 mg/dL Normal <150 Cholesterol Level 131 mg/dL Normal <200 HDL Cholesterol 29 mg/dL Low >40 LDL Cholesterol 74 mg/dL Normal <100 Non-HDL-C 102 mg/dL Normal Cholesterol Risk Ratio 4.517 Normal <5 FT4&TSH Panel 01/27/2020 [place] [address] [phone] Thyroid Stimulating Hormone 2.950 uIU/ML Normal 0. 358-3.740 Free T4 1.53 ng/dL High 0.76-1.46 1 Units are mL/min/1.73 m2 Chronic Kidney Disease Staging per NKF: Stage I & II GFR >=60 Normal to Mildly Decreased Stage III GFR 30-59 Moderately Decreased Stage IV GFR 15-29 Severely Decreased Stage V GFR <15 Very Little GFR Left ESRD GFR <15 on [employer] Procedures Date Code Description Status 09/18/2019 [id number] Mammogram Completed 06/24/2018 [id number] Mammogram Completed 06/24/2018 [id number] Bone Mineral Density Test Comple paula 05/23/2017 [id number] Mammogram Completed 04/10/2016 [id number] Mammogram Completed Medical Devices Description No Information [...] Debbi hernández M.D. 07/19/2020 Z00.00 Encounter for [facility] adult medical examination without abnormal findings Debbi Hernandez M.D. 02/05/2020 J44.9 Chronic obstructive pulmonary di sease, unspecified Irene Rodriguez FNP 02/05/2020 E03.9 Hypothyroidism, unspecified Ples Irene trinidad FNP 02/05/2020 F43.22 Adjustment disorder with anxiety Irene Rodriguez FNP 02/05/2020 J30.9 Allergic rhinitis, unspecified P Irene parry FNP 02/05/2020 I25.10 Atherosclerotic hear t disease of [place] coronary artery without angina pectoris Irene Rodriguez FNP Plan of Treatment No Information Available Functional Status Functional Condition Comment Date Status Complete lower and upper and lower dentures Active Independent with all ADL's Activ e Bifocal glasses Active Mental Status Mental Condition Comment Date Status None Active Referrals Description No Information Available
--- OUTSIDE RECORDS SUMMARY | 2020-09-24 11:05 | CCD ---
Author Author [facility] Organization [facility] Address Unknown Phone Unavailable Care Team Providers Care Sub Acute Care Nurse Name Role Phone Ramone Cervantes MD Unavailable Unavailable Billy, Ramone Werner MD Unavailable Unavailable Billy, Ramone Werner MD Unavailable Unavailable Billy, Ramone Werner MD Unavailable Unavailable Billy, Ramone Werner MD Unavailable Unavailable Billy, Ramone Werner MD Unavailable Unavailable Billy, Ramone Werner MD Unavailable Unavailable Billy, Ramone Werner MD Unavailable Unavailable Billy, Ramone Werner MD Unavailable Unavailable Billy, Ramone Werner MD Unavailable Unavailable Billy, Ramone Werner MD Unavailable Unavailable Billy, Ramone Werner MD Unavailable Unavailable Billy, Ramone Werner MD Unavailable Unavailable Billy, Ramone Werner MD Unavailable Unavailable Billy, Ramone Werner MD Unavailable Unavailable Billy, Ramone Werner MD Unavailable Unavailable Billy, Ramone Werner MD Unavailable Unavailable Billy, Ramone Werner MD Unavailable Unavailable Billy, Ramone Werner MD Unavailable Unavailable Billy, Ramone Werner MD Unavailable Unavailable Billy, Ramone Werner MD Unavailable Unavailable Billy, Ramone Werner MD Unavailable Unavailable Billy, Ramone Werner MD Unavailable Unavailable Billy, Ramone Werner MD Unavailable Unavailable Billy, Ramone Werner MD Unavailable Unavailable Billy, Ramone Werner MD Unavailable Unavailable Billy, Ramone Werner MD Unavailable Unavailable Billy, Ramone Werner MD Unavailable Unavailable Billy, Ramone Werner MD Unavailable Unavailable Billy, Ramone Werner MD Unavailable Unavailable Billy, Ramone Werner MD Unavailable Unavailable Billy, Ramone Werner MD Unavailable Unavailable Billy, Ramone Werner MD Unavailable Unavailable Billy, Ramone Werner MD Unavailable Unavailable Billy, Ramone Werner MD Unavailable Unavailable Billy, Ramone Werner MD Unavailable Unavailable Billy, Ramone Werner MD Unavailable Unavailable Billy, Ramone Werner MD Unavailable Unavailable Billy, Ramone Werner MD Unavailable Unavailable Billy, Ramone Werner MD Unavailable Unavailable Billy, Ramone Werner MD Unavailable Unavailable Billy, Ramone Werner MD Unavailable Unavailable Billy, Ramone Werner MD Unavailable Unavailable Billy, Ramone Werner MD Unavailable Unavailable Billy, Ramone Werner MD Unavailable Unavailable Billy, Ramone Werner MD Unavailable Unavailable Billy, Ramone Werner MD Unavailable Unavailable Billy, Ramone Werner MD Unavailable Unavailable Billy, Ramone Werner MD Unavailable Unavailable Billy, Ramone Werner MD Unavailable Unavailable Billy, Ramone Werner MD Unavailable Unavailable Billy, Ramone Werner MD Unavailable Unavailable Billy, Ramone Werner MD Unavailable Unavailable Billy, Ramone Werner MD Unavailable Unavailable Billy, Ramone Werner MD Unavailable Unavailable Billy, Ramone Werner MD Unavailable Unavailable Billy, Ramone Werner MD Unavailable Unavailable Billy, Ramone Werner MD Unavailable Unavailable Iblly, Ramone Werner MD Unavailable Unavailable Billy, Ramone Werner MD Unavailable Unavailable Billy, Ramone Werner MD Unavailable Unavailable Billy, Ramone Werner MD Unavailable Unavailable Billy, Ramone Werner MD Unavailable Unavailable Billy, Ramone Werner MD Unavailable Unavailable Billy, Ramone Werner MD Unavailable Unavailable Billy, Ramone Wenrer MD Unavailable Unavailable Billy, Ramone Werner MD Unavailable Unavailable Billy, Ramone Werner MD Unavailable Unavailable Billy, Ramone Werner MD Unavailable Unavailable Billy, Ramone Werner MD Unavailable Unavailable Billy, Ramone Werner MD Unavailable Unavailable Billy, Ramone Werner MD Unavailable Unavailable Billy, Ramone Werner MD Unavailable Unavailable Billy, Ramone Werner MD Unavailable Unavailable Billy, Ramone Werner MD Unavailable Unavailable Ovi Marks MD Unavailable Unavailable Ovi Marks MD Unavailable Unavailable Ovi Marks MD Unavailable Unavailable Ovi Marks MD Unavailable Unavailable Ovi Marks MD Unavailable Unavailable Ovi Marks MD Unavailable Unavailable Ovi Marks MD Unavailable Unavailable Ovi Marks MD Unavailable Unavailable Ovi Marks MD Unavailable Unavailable Ovi Marks MD Unavailable Unavailable Ovi Marks MD Unavailable Unavailable Ovi Mraks MD Unavailable Unavailable Ovi Marks MD Unavailable Unavailable Ovi Marks MD Unavailable Unavailable Ovi Marks MD Unavailable Unavailable Ovi Marks MD Unavailable Unavailable Ovi Marks MD Unavailable Unavailable Ovi Marks MD Unavailable Unavailable Ovi Marks MD Unavailable Unavailable Ovi Marks MD Unavailable Unavailable Ovi Marks MD Unavailable Unavailable Ovi Marks MD Unavailable Unavailable Ovi Marks MD Unavailable Unavailable Ovi Marks MD Unavailable Unavailable Ovi Marks MD Unavailable Unavailable Pleskach, Irene INTERNAL MEDICINE VETERINARY TECHNICIAN Unavailable Unavailable Pleskach, Irene INTERNAL MEDICINE VETERINARY TECHNICIAN Unavailable Unavailable Pleskach, Irene INTERNAL MEDICINE VETERINARY TECHNICIAN Unavailable Unavailable Pleskach, Irene INTERNAL MEDICINE VETERINARY TECHNICIAN Unavailable Unavailable Pleskach, Irene INTERNAL MEDICINE VETERINARY TECHNICIAN Unavailable Unavailable Pleskach, Irene INTERNAL MEDICINE VETERINARY TECHNICIAN Unavailable Unavailable Pleskach, Irene INTERNAL MEDICINE VETERINARY TECHNICIAN Unavailable Unavailable Pleskach, Irene INTERNAL MEDICINE VETERINARY TECHNICIAN Unavailable Unavailable Pleskach, Irene INTERNAL MEDICINE VETERINARY TECHNICIAN Unavailable Unavailable Pleskach, Irene INTERNAL MEDICINE VETERINARY TECHNICIAN Unavailable Unavailable Pleskach, Irene INTERNAL MEDICINE VETERINARY TECHNICIAN Unavailable Unavailable Pleskach, Irene INTERNAL MEDICINE VETERINARY TECHNICIAN Unavailable Unavailable Pleskach, Irene INTERNAL MEDICINE VETERINARY TECHNICIAN Unavailable Unavailable Pleskach, Irene INTERNAL MEDICINE VETERINARY TECHNICIAN Unavailable Unavailable Pleskach, Irene INTERNAL MEDICINE VETERINARY TECHNICIAN Unavailable Unavailable Pleskach, Irene INTERNAL MEDICINE VETERINARY TECHNICIAN Unavailable Unavailable Pleskach, Irene INTERNAL MEDICINE VETERINARY TECHNICIAN Unavailable Unavailable Pleskach, Irene INTERNAL MEDICINE VETERINARY TECHNICIAN Unavailable Unavailable Pleskach, Irene INTERNAL MEDICINE VETERINARY TECHNICIAN Unavailable Unavailable Pleskach, Irene INTERNAL MEDICINE VETERINARY TECHNICIAN Unavailable Unavailable Pleskach, Irene INTERNAL MEDICINE VETERINARY TECHNICIAN Unavailable Unavailable Pleskach, Irene INTERNAL MEDICINE VETERINARY TECHNICIAN Unavailable Unavailable Pleskach, Irene INTERNAL MEDICINE VETERINARY TECHNICIAN Unavailable Unavailable Pleskach, Irene INTERNAL MEDICINE VETERINARY TECHNICIAN Unavailable Unavailable Pleskach, Irene INTERNAL MEDICINE VETERINARY TECHNICIAN Unavailable Unavailable Pleskach, Irene INTERNAL MEDICINE VETERINARY TECHNICIAN Unavailable Unavailable Pleskach, Irene INTERNAL MEDICINE VETERINARY TECHNICIAN Unavailable Unavailable Pleskach, Irene INTERNAL MEDICINE VETERINARY TECHNICIAN Unavailable Unavailable Cal Espinoza MD Unavailable UnavailCal Arnett MD Unavailable UnavailCal Arnett MD Unavailable UnavailCal Arnett MD Unavailable UnavailCal Arnett MD Unavailable UnavailCal Arnett MD Unavailable UnavailCal Arnett MD Unavailable UnavailCal Arnett MD Unavailable UnavailCal Arnett MD Unavailable UnavailCal Arnett MD Unavailable Unavailabl e Ranjbaran-Jahromi, Cal MD Unavailable Unavailabl e Ranjbaran-Jahromi, Cal MD Unavailable Unavailabl e Ransuyapabaran-Jahromi, Cal MD Unavailable Unavailabl e Ransuyapabaran-Jahromi, Cal MD Unavailable Unavailabl e Ranjbaran-Jahromi, Cal MD Unavailable Unavailabl e Ranjbaran-Jahromi, Cal MD Unavailable Unavailabl e Ranjbaran-Jahromi, Cal MD Unavailable Unavailabl e Ranjbaran-Jahromi Cal MD Unavailable Unavailabl e Ranjbaran-Jahromi Cal MD Unavailable Unavailabl e Melinabaran-Jahromi Cal MD Unavailable Unavailabl e Melinabaran-Jahromi Cal MD Unavailable Unavailabl e Ranjbaran-Jahromi Cal MD Unavailable Unavailabl e Ransuyapabaran-Jahromi Cal MD Unavailable Unavailabl e Melinabaran-Jahromi Cal MD Unavailable Unavailabl e Melinabaran-Jahromi Cal MD Unavailable Unavailabl e Melinabaran-Jahromi Cal MD Unavailable Unavailabl e Panfiloan-Jahromi Cal MD Unavailable Unavailabl e Panfiloan-Jahromi Calbetsy SANTANA Unavailable Unavailabl e Melinabaran-Jahromi Cal MD Unavailable Unavailabl e Melinabaran-Jahromi Cal Unavailable Unavailabl e Felton-Hernandohromi Calbetsy SANTANA Unavailable Unavailabl e Panfiloan-Hernandohromi Calbetsy SANTANA Unavailable Unavailabl e Ransuyapabaran-Jahromi Cal MD Unavailable Unavailabl e Melinabaran-Jahromi Cal MD Unavailable Unavailabl e Panfiloan-Jahromi Cal MD Unavailable Unavailabl e Panfiloan-Jahromi Calbetsy SANTANA Unavailable Unavailabl e Melinabaran-Jahromi Cal MD Unavailable Unavailabl e Melinabaran-Jahromi Cal Unavailable Unavailabl e Felton-Jahromi Calbetsy SANTANA Unavailable Unavailabl e Panfiloan-Hernandohromi Cal MD Unavailable Unavailabl e Ranjbaran-Jahromi, Cal MD Unavailable Unavailabl e Melinabaran-Jahromi Cal Unavailable Unavailabl e Melinabaran-Jahromi Cal Unavailable Unavailabl e Melinabaran-Jahromi Cal MD Unavailable Unavailabl e Melinabaran-Jahromi Cal Unavailable Unavailabl e Melinabararun-Jahromi Cal Unavailable Unavailabl e Melinabaran-Jahromi Cal Unavailable Unavailabl e Melinabaran-Jahromi Cal Unavailable Unavailabl e Melinabaran-Jahromi Cal Unavailable Unavailabl e Melinabaran-Jahromi Cal Unavailable Unavailabl e Melinabaran-Jahromi Cal MD Unavailable Unavailabl e Melinabaran-Jahromi Calbetsy SANTANA Unavailable Unavailabl e Felton-Hernandohromi Calbetsy SANTANA Unavailable Unavailabl e Felton-Hernandohromi Calbetsy SANTANA Unavailable Unavailabl e Panfiloan-Jahromi Cal Unavailable Unavailabl e Felton-Jahromi Cal Unavailable Unavailabl e Felton-Hernandohromi Calbetsy SANTANA Unavailable Unavailabl e Felton-Chloéomi Calbetsy SANTANA Unavailable Unavailabl e Felton-Jahromi Calbetsy SANTANA Unavailable Unavailabl e Felton-Hernandohromi Calbetsy SANTANA Unavailable Unavailabl e Felton-Hernandohromi Calbetsy SANTANA Unavailable Unavailabl e Felton-Jahromi Calbetsy SANTANA Unavailable Unavailabl e Melinabaran-Jahromi Calbetsy SANTANA Unavailable Unavailabl e Panfiloan-Jahromi Calbetsy SANTANA Unavailable Unavailabl e Felton-Hernandohromi Calbetsy SANTANA Unavailable Unavailabl e Felton-Hernandohromi Calbetsy SANTANA Unavailable Unavailabl e Panfiloan-Jahromi Calbetsy SANTANA Unavailable Unavailabl e Felton-Jahromi Calbetsy SANTANA Unavailable Unavailabl e Felton-Hernandohromi Calbetsy SANTANA Unavailable Unavailabl e Felton-Joey Cal SANTANA Unavailable Unavailabl e Ransergioan-Jahromi, Cal SANTANA Unavailable Unavailabl e Ranerasmo-Jahromi, Cal SANTANA Unavailable Unavailabl e Ranerasmo-Hernandohromi, Cal SANTANA Unavailable Unavailabl e Ranerasmo-Jahromi, Calbetsy SANTANA Unavailable Unavailabl e Ranerasmo-Jahromi, Calbetsy SANTANA Unavailable Unavailabl e Ranerasmo-Jahromi, Cal SANTANA Unavailable Unavailabl e Ransuyapabaran-Jahromi, Cal SANTANA Unavailable Unavailabl e Ransuyapabaran-Jahromi, Cal SANTANA Unavailable Unavailabl e Felton-Hernandohromi, Cal SANTANA Unavailable Unavailabl e Felton-Hernandohromi, Cal MD Unavailable Unavailabl e Felton-Hernandohromi, Cal MD Unavailable Unavailabl e Felton-Hernandohromi, Cal SANTANA Unavailable Unavailabl e Felton-Hernandohromi, Cal SANTANA Unavailable Unavailabl e Felton-Hernandohromi, Cal SANTANA Unavailable Unavailabl e Felton-Hernandohromi, Cal SANTANA Unavailable Unavailabl e Felton-Chloéomi, Cal SANTANA Unavailable Unavailabl e RING, K DAMIEN PA Unavailable Unavailable RING, K DAMIEN PA Unavailable Unavailable RING, K DAMIEN PA Unavailable Unavailable RING, K DAMIEN PA Unavailable Unavailable RING, K DAMIEN PA Unavailable Unavailable RING, K DAMIEN PA Unavailable Unavailable RING, K DAMIEN PA Unavailable Unavailable RING, K DAMIEN PA Unavailable Unavailable RING, K DAMIEN PA Unavailable Unavailable RING, K DAMIEN PA Unavailable Unavailable RING, K DAMIEN PA Unavailable Unavailable RING, K DAMIEN PA Unavailable Unavailable RING, K DAMIEN PA Unavailable Unavailable RING, K DAMIEN PA Unavailable Unavailable RING, K DAMIEN PA Unavailable Unavailable RING, K DAMIEN PA Unavailable Unavailable RING, K DAMIEN PA Unavailable Unavailable RING, K DAMIEN PA Unavailable Unavailable RING, K DAMIEN PA Unavailable Unavailable RING, K DAMIEN PA Unavailable Unavailable WINTER, M WILBERTO RADIOLOGIC TECHNOLOGIST CHIEF Unavailable Unavailable WINTER, M WILBERTO RADIOLOGIC TECHNOLOGIST CHIEF Unavailable Unavailable WINTER, M WILBERTO RADIOLOGIC TECHNOLOGIST CHIEF Unavailable Unavailable WINTER, M WILBERTO RADIOLOGIC TECHNOLOGIST CHIEF Unavailable Unavailable WINTER, M WILBERTO RADIOLOGIC TECHNOLOGIST CHIEF Unavailable Unavailable WINTER, M WILBERTO RADIOLOGIC TECHNOLOGIST CHIEF Unavailable Unavailable WINTER, M WILBERTO RADIOLOGIC TECHNOLOGIST CHIEF Unavailable Unavailable WINTER, M WILBERTO RADIOLOGIC TECHNOLOGIST CHIEF Unavailable Unavailable WINTER, M WILBERTO RADIOLOGIC TECHNOLOGIST CHIEF Unavailable Unavailable WINTER, M WILBERTO RADIOLOGIC TECHNOLOGIST CHIEF Unavailable Unavailable WINTER, M WILBERTO RADIOLOGIC TECHNOLOGIST CHIEF Unavailable Unavailable WINTER, M WILBERTO RADIOLOGIC TECHNOLOGIST CHIEF Unavailable Unavailable WINTER, M WILBERTO RADIOLOGIC TECHNOLOGIST CHIEF Unavailable Unavailable WINTER, M WILBERTO RADIOLOGIC TECHNOLOGIST CHIEF Unavailable Unavailable WINTER, M WILBERTO RADIOLOGIC TECHNOLOGIST CHIEF Unavailable Unavailable WINTER, M WILBERTO RADIOLOGIC TECHNOLOGIST CHIEF Unavailable Unavailable WINTER, M WILBERTO RADIOLOGIC TECHNOLOGIST CHIEF Unavailable Unavailable WINTER, M WILBERTO RADIOLOGIC TECHNOLOGIST CHIEF Unavailable Unavailable WINTER, M WILBERTO RADIOLOGIC TECHNOLOGIST CHIEF Unavailable Unavailable WINTER, M WILBERTO RADIOLOGIC TECHNOLOGIST CHIEF Unavailable Unavailable WINTER, M WILBERTO RADIOLOGIC TECHNOLOGIST CHIEF Unavailable Unavailable WINTER, M WILBERTO RADIOLOGIC TECHNOLOGIST CHIEF Unavailable Unavailable WINTER, M WILBERTO RADIOLOGIC TECHNOLOGIST CHIEF Unavailable Unavailable WINTER, M WILBERTO RADIOLOGIC TECHNOLOGIST CHIEF Unavailable Unavailable WINTER, M WILBERTO RADIOLOGIC TECHNOLOGIST CHIEF Unavailable Unavailable WINTER, M WILBERTO RADIOLOGIC TECHNOLOGIST CHIEF Unavailable Unavailable WINTER, M WILBERTO RADIOLOGIC TECHNOLOGIST CHIEF Unavailable Unavailable WINTER, M WILBERTO RADIOLOGIC TECHNOLOGIST CHIEF Unavailable Unavailable WINTER, M WILBERTO RADIOLOGIC TECHNOLOGIST CHIEF Unavailable Unavailable WINTER, M WILBERTO RADIOLOGIC TECHNOLOGIST CHIEF Unavailable Unavailable WINTER, M WILBERTO RADIOLOGIC TECHNOLOGIST CHIEF Unavailable Unavailable WINTER, M WILBERTO RADIOLOGIC TECHNOLOGIST CHIEF Unavailable Unavailable WINTER, M WILBERTO RADIOLOGIC TECHNOLOGIST CHIEF Unavailable Unavailable Steele, Latanya Paige PA Unavailable Unavailable Steele, Latanya Paige PA Unavailable Unavailable Steele, Latanya Paige PA Unavailable Unavailable Steele, Latanya Paige PA Unavailable Unavailable Steele, Latanya Paige PA Unavailable Unavailable Steele, Latanya Paige PA Unavailable Unavailable Steele, Latanya Paige PA Unavailable Unavailable Steele, Latanya Paige PA Unavailable Unavailable Steele, Latanya Paige PA Unavailable Unavailable Steele, Latanya Paige PA Unavailable Unavailable Ramone Cervantes MD Unavailable Unavailable Ramone Cervantes MD Unavailable Unavailable Ramone Cervantes MD Unavailable Unavailable Ramone Cervantes MD Unavailable Unavailable Ramone Cervantes MD Unavailable Unavailable Ramone Cervantes MD Unavailable Unavailable Ramone Cervantes MD Unavailable Unavailable Ramone Cervantes MD Unavailable Unavailable Ramone Cervantes MD Unavailable Unavailable Ramone Cervantes MD Unavailable Unavailable Ramone Cervantes MD Unavailable Unavailable Ramone Cervantes MD Unavailable Unavailable Ramone Cervantes MD Unavailable Unavailable Ramone Cervantes MD Unavailable Unavailable Ramone Cervantes MD Unavailable Unavailable Ramone Cervantes MD Unavailable Unavailable Ramone Cervantes MD Unavailable Unavailable Ramone Cervantes MD Unavailable Unavailable Ramone Cervantes MD Unavailable Unavailable Ramone Cervantes MD Unavailable Unavailable Billy, A Debbi SANTANA Unavailable Unavailable Billy, A Debbi SANTANA Unavailable Unavailable Billy, A Debbi SANTANA Unavailable Unavailable Billy, A Debbi SANTANA Unavailable Unavailable Billy, A Debbi SANTANA Unavailable Unavailable Billy, A Debbi SANTANA Unavailable Unavailable Billy, A Debbi SANTANA Unavailable Unavailable Billy, A Debbi SANTANA Unavailable Unavailable Billy, A Debbi SANTANA Unavailable Unavailable Billy, A Debbi SANTANA Unavailable Unavailable Billy, A Debbi SANTANA Unavailable Unavailable Billy, A Debbi SANTANA Unavailable Unavailable Billy, A Debbi SANTANA Unavailable Unavailable Billy, A Debbi SANTANA Unavailable Unavailable Billy, A Debbi SANTANA Unavailable Unavailable Billy, A Debbi SANTANA Unavailable Unavailable Billy, A Debbi SANTANA Unavailable Unavailable Billy, A Debbi SANTANA Unavailable Unavailable Billy, A Debbi SANTANA Unavailable Unavailable Billy, A Debbi SANTANA Unavailable Unavailable Billy, A Debbi SANTANA Unavailable Unavailable Billy, A Debbi SANTANA Unavailable Unavailable Billy, A Debbi SANTANA Unavailable Unavailable Billy, A Debbi SANTANA Unavailable Unavailable Billy, A Debbi SANTANA Unavailable Unavailable Billy, A Debbi SANTANA Unavailable Unavailable Billy, A Debbi SANTANA Unavailable Unavailable Billy, A eDbbi SANTANA Unavailable Unavailable Billy, A Debbi SANTANA Unavailable Unavailable Billy, A Debbi SANTANA Unavailable Unavailable Billy, A Debbi SANTANA Unavailable Unavailable Billy, A Debbi SANTANA Unavailable Unavailable Billy, A Debbi SANTANA Unavailable Unavailable Billy, A Debbi SANTANA Unavailable Unavailable Billy, A Debbi SANTANA Unavailable Unavailable Billy, A Debbi SANTANA Unavailable Unavailable Billy, A Debbi SANTANA Unavailable Unavailable Billy, A Debbi SANTANA Unavailable Unavailable Billy, A Debbi SANTANA Unavailable Unavailable Billy, A Debbi SANTANA Unavailable Unavailable Billy, A Debbi SANTANA Unavailable Unavailable Billy, A Debbi SANTANA Unavailable Unavailable Billy, A Debbi SANTANA Unavailable Unavailable Billy, A Debbi SANTANA Unavailable Unavailable Billy, A Debbi SANTANA Unavailable Unavailable Billy, A Debbi SANTANA Unavailable Unavailable Billy, A Debbi SANTANA Unavailable Unavailable Billy, A Debbi SANTANA Unavailable Unavailable Billy, A Debbi SANTANA Unavailable Unavailable Billy, A Debbi SANTANA Unavailable Unavailable Billy, A Debbi SANTANA Unavailable Unavailable Billy, A Debbi SANTANA Unavailable Unavailable Billy, A Debbi SANTANA Unavailable Unavailable Billy, A Debbi SANTANA Unavailable Unavailable Billy, A Debbi SANTANA Unavailable Unavailable Re-disclosure Warning The records that you are about to access may contain information from federally-assisted alcohol or drug abuse programs. If such information is present, then the following federally mandated warning applies: This information has been disclosed to you from records protected by federal confidentiality rules (42 CFR part 2). The federal rules prohibit you from making any further disclosure of this information unless further disclosure is expressly permitted by the written consent of the person to whom it pertains or as otherwise permitted by 42 CFR part 2. A general authorization for the release of medical or other information is NOT sufficient for this purpose. The Federal rules restrict any use of the information to criminally investigate or prosecute any alcohol or drug abuse patient.The records that you are about to access may contain highly sensitive health information, the redisclosure of which is protected by Article 27-F of the [facility] Public Health law. If you continue you may have access to information: Regarding HIV / AIDS; Provided by facilities licensed or operated by the [facility] Office of Mental Health; or Provided by the [facility] Office for People With Developmental Disabilities. If such information is present, then the following [facility] mandated warning applies: This information has been disclosed to you from confidential records which are protected by state law. State law prohibits you from making any further disclosure of this information without the specific written consent of the person to whom it pertains, or as otherwise permitted by law. Any unauthorized further disclosure in violation of state law may result in a fine or skilled nursing sentence or both. A general authorization for the release of medical or other information is NOT sufficient authorization for further disc losure. Family History Family Member Name Family Member Gender Family Member Status Date o f Status Description Data Source(s) Unknown Unknown Problem [facility] ([facility] Unknown Unknown Problem [facility] Encounters Encounter Providers Location Date Indications Data Source(s ) Outpatient Attender: Cal Espinoza MD [facility] 08/31/2020 07:45:00 AM EST [facility] ([facility]) Outpatient Attender: Debbi Cervantes MD Main Office 07/27/2020 08:45:0 0 AM EST [facility] ([facility] Outpatient Attender: Debbi Cervantes MD Main Office 07/19/2020 08:00:0 0 AM EST [facility] ([facility] Outpatient Attender: DAMIEN Parker Primary 06/20/2020 10:45:00 AM EDT [facility] ([facility]) Outpatient Attender: Cal Espinoza MD [facility] 03/01/2020 11:45:00 AM EDT [facility] ([facility]) Outpatient Referrer: Debbi Cervantes MD 02/29/2020 05:16:00 AM EDT [facility] Outpatient Attender: Paige Parker Prim kyler 02/12/2020 03:30:00 PM EDT [facility] ([facility]) Outpatient Attender: WILBERTO LIMON NP [facility] 02/10/2020 04:00:00 PM EDT [facility] ([facility]) Outpatient Attender: Irene Rodriguez [facility] Main Office 02/05/2020 1 1:30:00 AM EDT [facility] ([facility] Outpatient Referrer: Debbi Cervantes MD 12/31/2019 05:55:00 AM EDT [facility] Outpatient Attender: Irene Rodriguez [facility] Main Office 12/22/2019 0 3:00:00 PM EDT [facility] ([facility] Outpatient Attender: Irene Rodriguez [facility] Main Office 12/15/2019 1 0:45:00 AM EDT [facility] ([facility] Outpatient Attender: DAMIEN Parker Primary 11/02/2019 08:00:00 AM EST [facility] ([facility]) Outpatient Referrer: Debbi Cervantes MD 10/21/2019 01:14:00 PM EST [facility] Outpatient Referrer: Debbi Cervantes MD 10/21/2019 09:57:00 AM EST [facility] Outpatient Referrer: Debbi Cervantes MD 10/15/2019 11:57:00 AM EST [facility] Outpatient Referrer: Debbi Cervantes MD 10/15/2019 09:57:00 AM EST [facility] Outpatient Referrer: Debbi Cervantes MD 10/14/2019 03:51:00 PM EST [facility] Outpatient Referrer: Debbi Cervantes MD 10/14/2019 03:48:00 PM EST [facility] Outpatient Attender: DAMIEN Villafana 10/10/2019 12:15:00 PM EST [facility] ([facility]) Outpatient Attender: WILBERTO LIMON NP [facility] 10/07/2019 09:30:00 AM EST [facility] ([facility]) Outpatient Referrer: Debbi Cervantes MD 10/04/2019 08:09:00 PM EST [facility] Outpatient Attender: Wan Marks MD Physical Therapy 08:00:00 AM EST [facility] Immunizations Vaccine Date Status Description Data Source(s) This CVX code allows reporting of a vacc ination when formulation is unknown (for example, when recording a Influenza vaccination when noted on a vaccination card) 02/10/2020 03:29:00 PM EDT completed MEDEN T ([facility]) Medications Medication Brand Name Start Date Product Form Dose Route Admi nistrative Instructions Pharmacy Instructions Status Indications Reaction Description Data Source(s) Amoxicillin 875 MG Oral Tablet Amoxicillin 07/19/2020 12:00:00 AM EST ORAL completed [facility] ([facility] 875 mg 07/19/2020 12:00:00 AM EST tablet 20 TAKE ONE TABLET BY MOUTH TWICE A DAY FOR 10 DAYS TAKE ONE TABLET BY MOUTH TWICE A DAY FOR 10 DAYS SOLD: 07/19/2020 [facility] 10,000 unit- 1 mg/mL 06/20/2020 12:00:00 AM EDT drops 10 INSTILL 1 TO 2 DROPS IN THE LEFT EYE EVERY 6 HOURS FOR 7 DAYS INSTILL 1 TO 2 DROPS IN THE LEFT EYE EVERY 6 HOURS FOR 7 DAYS SOLD: 06/20/2020 [facility] Ofloxacin 3 MG/ML Otic Solution Ofloxacin (Otic) 06/20/2020 12:00:00 AM EDT AURICULAR active [facility] ([facility], [facility]) Polymyxin B 00544 UNT/ML / Trimethoprim 1 MG/ML Ophtha lmic Solution Trimethoprim Sulfate/Polymyxin B Sulfate 06/20/2020 12:00:00 AM EDT OPHTH ALMIC active [facility] ([facility], [facility]) 0.3 % 06/20/2020 12:00:00 AM EDT drops 5 INSTILL 4 TO 6 DROPS RIGHT EAR EVERY 12 HOURS FOR 7 DAYS INSTILL 4 TO 6 DROPS RIGHT EAR EVERY 12 HOURS FOR 7 DAYS SOLD: 06/20/2020 [facility] carvedilol 3.125 MG Oral Tablet CARVEDILOL 03/01/2020 12:00:00 AM EDT tablet 180 TAKE ONE TABLET BY MOUTH TWICE A DAY TAKE ONE TA BLET BY MOUTH TWICE A DAY SOLD: 03/04/2020 [facility] carvedilol 3.125 MG Oral Tablet CARVEDILOL 03/01/2020 12:00:00 AM EDT tablet 180 TAKE ONE TABLET BY MOUTH TWICE A DAY TAKE ONE TA BLET BY MOUTH TWICE A DAY SOLD: 06/04/2020 [facility] carvedilol 3.125 MG Oral Tablet CARVEDILOL 03/01/2020 12:00:00 AM EDT tablet 180 TAKE ONE TABLET BY MOUTH TWICE A DAY TAKE ONE TA BLET BY MOUTH TWICE A DAY SOLD: 09/07/2020 [facility] 50 mcg/actuation 02/05/2020 12:00:00 AM EDT spray,suspension 16 SPRAY 2 SPRAYS IN EACH NOSTRIL ONCE DAILY SPRAY 2 SPRAYS IN EACH NOSTRIL ONCE DAILY SOLD: 02/08/2020 [facility] Fluticasone Propionate Nasal [place] Allergy Relief 24- Hour Fluticasone Propionate Nasal [place] Allergy Relief 24- Hour 02/05/2020 12:00:00 AM EDT active [facility] ([facility] atorvastatin 40 MG Oral Tablet ATORVASTATIN CALCIUM 01/20/2020 1 2:00:00 AM EDT tablet 90 TAKE ONE TABLET BY MOUTH AT BEDT JET TAKE ONE TABLET BY MOUTH AT BEDTIME SOLD: 07/26/2020 [facility] 40 mg 01/20/2020 12:00:00 AM EDT tablet 90 TAKE ONE TABLET BY MOUTH AT BEDTIME TAKE ONE TABLET BY MOUTH AT BEDTIME SOLD: 04/20/2020 [facility] 40 mg 01/20/2020 12:00:00 AM EDT tablet 90 TAKE ONE TABLET BY MOUTH AT BEDTIME TAKE ONE TABLET BY MOUTH AT BEDTIME SOLD: 01/22/2020 [facility] 75 mcg 01/13/2020 12:00:00 AM EDT tablet 90 TAKE ONE TABLET BY MOUTH EVERY DAY TAKE ONE TABLET BY MOUTH EVERY DAY SOLD: 01/14/2020 [facility] 75 mcg 01/13/2020 12:00:00 AM EDT tablet 90 TAKE ONE TABLET BY MOUTH EVERY DAY TAKE ONE TABLET BY MOUTH EVERY DAY SOLD: 07/07/2020 [facility] 75 mcg 01/13/2020 12:00:00 AM EDT tablet 90 TAKE ONE TABLET BY MOUTH EVERY DAY TAKE ONE TABLET BY MOUTH EVERY DAY SOLD: 04/06/2020 [facility] 250 mg 12/22/2019 12:00:00 AM EDT tablet 6 TAKE TWO TABLETS BY MOUTH AT ONCE ON THE FIRST DAY THEN TAKE ONE DAILY THEREAFTER TAKE TWO TABLETS BY MOUTH AT ONCE ON THE FIRST DAY THEN TAKE ONE DAILY THEREAFTER SOLD: 12/22/2019 [facility] Azithromycin 250 MG Oral Tablet Azithromycin 12/22/2019 12:00:00 AM EDT completed [facility] ([facility] 0.4 mg 12/15/2019 12:00:00 AM EDT tablet, sublingual 25 PLACE ONE TABLET UNDER THE TONGUE. REPEAT EVERY 5 MINUTES 2 TIMES NEEDED FOR CHEST PAIN PLACE ONE TABLET UNDER THE TONGUE. REPEAT EVERY 5 MINUTES 2 TIMES NEEDED FOR CHEST PAIN SOLD: 12/17/2019 [facility] 20 mg 12/15/2019 12:00:00 AM EDT tablet 8 TAKE TWO TABLETS BY MOUTH EVERY DAY FOR 4 DAYS TAKE TWO TABLETS BY MOUTH EVERY DAY FOR 4 DAYS SOLD: 020 [facility] 75 mcg 12/15/2019 12:00:00 AM EDT tablet 30 TAKE ONE TABLET BY MOUTH EVERY DAY TAKE ONE TABLET BY MOUTH EVERY DAY SOLD: 12/15/2019 [facility] 10 mg 12/15/2019 12:00:00 AM EDT tablet 60 TAKE 1 TO 2 TABLETS THREE TIMES A DAY NEEDED FOR ANXIETY TAKE 1 TO 2 TABLETS THREE TIMES A DAY NEEDED FOR ANXIETY SOLD: 12/17/2019 [facility] Levothyroxine Sodium 0.075 MG Oral Tablet Levothyroxine Sodi um 12/15/2019 12:00:00 AM EDT ORAL active M [facility] ([facility] Hydroxyzine Hydrochloride 10 MG Oral Tablet Hydroxyzine HCL 12/15/2019 12:00:00 AM EDT ORAL active [facility] ([facility] Oseltamivir 75 MG Oral Capsule [Tamiflu] Tamiflu 11/12/2019 12:00: 00 AM EST ORAL completed [facility] ([facility] 75 mg 11/12/2019 12:00:00 AM EST capsule 10 TAKE ONE CAPSULE BY MOUTH EVERY DAY FOR 10 DAYS TAKE ONE CAPSULE BY MOUTH EVERY DAY FOR 10 DAYS SOLD: 11/12/2019 [facility] Polymyxin B 13072 UNT/ML / Trimethoprim 1 MG/ML Ophtha lmic Solution Trimethoprim Sulfate/Polymyxin B Sulfate 11/02/2019 12:00:00 AM EST OPHT HALMIC completed [facility] ([facility]) 10,000 unit- 1 mg/mL 11/02/2019 12:00:00 AM EST drops 10 INSTILL 1 DROP IN EACH EYE EVERY 6 HOURS FOR 7 DAYS INSTILL 1 DROP IN EACH EYE EVERY 6 HOURS FOR 7 DAYS SOLD: 11/02/2019 [facility] cefdinir 300 MG Oral Capsule Cefdinir 11/02/2019 12:00:00 AM EST ORAL completed [facility] ([facility]) 300 mg 11/02/2019 12:00:00 AM EST capsule 20 TAKE ONE CAPSULE BY MOUTH EVERY 12 HOURS FOR 10 DAYS TAKE ONE CAPSULE BY MOUTH EVERY 12 HOURS FOR 10 DAYS S OLD: 11/02/2019 [facility] 100 mg 10/10/2019 12:00:00 AM EST capsule 10 TAKE ONE CAPSULE BY MOUTH EVERY 12 HOURS FOR 5 DAYS TAKE ONE CAPSULE BY MOUTH EVERY 12 HOURS FOR 5 DAYS SO LD: 10/10/2019 [facility] NITROFURANTOIN, MACROCRYSTALS 25 MG / Ni trofurantoin, Monohydrate 75 MG Oral Capsule [Macrobid] Macrobid 10/10/2019 12:00:00 AM EST ORAL completed [facility] ([facility]) Phenazopyridine hydrochloride 100 MG Oral Tablet Phenazopyri dine HCL 10/10/2019 12:00:00 AM EST ORAL completed [facility] ([facility]) 100 mg 10/10/2019 12:00:00 AM EST tablet 9 TAKE ONE TABLET BY MOUTH THREE TIMES A DAY WITH FOOD NEEDED FOR URINARY PAIN TAKE ONE TABLET BY MOUTH THREE TIMES A DAY WITH FOOD NEEDED FOR URINARY PAIN SOLD: 10/10/2019 [facility] 100 mcg 06/23/2019 12:00:00 AM EDT tablet 90 TAKE ONE TABLET BY MOUTH EVERY DAY TAKE ONE TABLET BY MOUTH EVERY DAY SOLD: 10/13/2019 [facility] 40 mg 06/18/2019 12:00:00 AM EDT capsule,delayed release (DR/EC) 90 TAKE ONE CAPSULE BY MOUTH EVERY MORNING TAKE ONE CAPSULE BY MOUTH EVERY MORNING SOLD: 12/01/2019 [facility] 90 mcg/actuation 02/24/2019 12:00:00 AM EDT HFA aerosol inha ler 8 INHALE 2 PUFFS EVERY 4 HOURS NEEDED INHALE 2 PUFFS EVERY 4 HOURS NEEDED SOLD: 12/17/2019 [facility] carvedilol 3.125 MG Oral Tablet CARVEDILOL 02/16/2019 12:00:00 AM EDT tablet 180 TAKE ONE TABLET BY MOUTH TWICE A DAY TAKE ONE TA BLET BY MOUTH TWICE A DAY SOLD: 08/27/2019 [facility] carvedilol 3.125 MG Oral Tablet CARVEDILOL 02/16/2019 12:00:00 AM EDT tablet 180 TAKE ONE TABLET BY MOUTH TWICE A DAY TAKE ONE TA BLET BY MOUTH TWICE A DAY SOLD: 12/01/2019 [facility] 40 mg 01/06/2019 12:00:00 AM EDT tablet 90 TAKE ONE TABLET BY MOUTH AT BEDTIME TAKE ONE TABLET BY MOUTH AT BEDTIME SOLD: 10/13/2019 [facility] 75 mg 11/19/2018 12:00:00 AM EDT tablet 90 TAKE ONE TABLET BY MOUTH EVERY DAY TAKE ONE TABLET BY MOUTH EVERY DAY SOLD: 08/27/2019 [facility] Insurance Providers Payer name Policy type / Coverage type Policy ID Covered constitution party ID Covered constitution party's relationship to vázquez Policy Vázquez Plan Information [facility] [id number] [employer]BS [place] [id number] [id number] [facility] O [id number] S [id number] BCBS [place] [place] [id number] [employer] [place] [place] [id number] EMPIRE (STATE EMP) O [id number] S [id number] [employer] [id number] [id number] [employer] [place] [id number] HU2 [id number] BCBS [place] PPO 302/307 [employer] [id number] [id number] Emp/[employer] [id number] Emp/[employer] [id number] Emp/[employer] [id number] Emp/[employer] [id number] Felt Plan/[employer] [id number] Family Depend ent [id number] Emp/[employer] [id number] Emp/[employer] [id number] [employer] [id number] [id number] BCBS [place] [place] [id number] [id number] Emp/[employer] [id number] Emp/[employer] [id number] Emp/[employer] [id number] Emp/[employer] [id number] [employer] [id number] HU2 [id number] BCBS [place] [id number] HU2 [id number] EXCELLUS BCBS PI PI EXCELLUS BCBS [id number] Spo [id number] Emp/[employer] [id number] Emp/[employer] [id number] Emp/[employer] [id number] Emp/[employer] [id number] Emp/[employer] [id number] EMPIRE (STATE EMP) O [id number] P [id number] Emp/[employer] Commercial [employer] Commercial Family Depende nt BCBS [place] [id number] [id number] Problems, Conditions, and Diagnoses Code Display Name Description Problem Type Effective Dates Data Source(s) 78171033 Premature beats Premature beats Problem 02/10/2020 12:0 0:00 AM EDT [facility] ([facility]) [id number] Palpitations Palpitations Problem 02/10/2020 12:00:00 A M EDT [facility] ([facility]) [id number] Patient post percutaneous transluminal c oronary angioplasty Patient post percutaneous transluminal coronary angioplasty Problem 12:00:00 AM EST [facility] ([facility]) [id number] Dietary management surveillance Dietary manageme nt surveillance Problem 10/07/2019 12:00:00 AM EST [facility] ([facility]) Surgeries/Procedures Procedure Description Date Indications Data Source(s) ARTHROCENTESIS ASPIR&/INJECTION SMALL JT/BURSA 12:00:00 AM EDT [facility] ([facility]) ARTHROCENTESIS ASPIR&/INJECTION MAJOR JT/BURSA 12:00:00 AM EDT [facility] ([facility]) Spect Image, Multiple,W/Ejection Fraction And Wall Motion 02/24/2020 12:00:00 AM EDT [facility] ([facility]) Cardiovascular Stress Test W/Interpretation & Report 02/24/2020 12:00:00 AM EDT [facility] ([facility]) Event Recorder MD Review & Interpretation, Patient Demand, 02/11/2020 12:00:00 AM EDT [facility] ([facility]) Electrocardiogram Complete 02/10/2020 12:00:00 AM EDT [facility] ([facility]) Electrocardiogram Complete 10/07/2019 12:00:00 AM EST [facility] ([facility]) Mammogram 09/18/2019 12:00:00 AM EST M [facility]ENT ([facility] Xray: 05/23/17 - Mammography, Bilateral, order given 04/15/18 ARTHROCENTESIS ASPIR&/INJECTION MAJOR JT/BURSA 020 12:00:00 AM EST [facility] ([facility] ) RADEX SHOULDER COMPLETE MINIMUM 2 VIEWS 09/10/2019 12: 00:00 AM EST [facility] ([facility]) ARTHROCENTESIS ASPIR&/INJECTION MAJOR JT/BURSA 019 12:00:00 AM EST [facility] ([facility]) Results ID Date Data Source [id number] 08/30/2020 10:25:00 AM EST [facility] ([facility] Name Value Range Interpretation Code Description Data Sosa rce(s) Supporting Document(s) Free T4 1.38 ng/dL 0.76-1.46 [facility] ([facility] Thyroid Stimulating Hormone 3.650 uIU/ML 0.358-3.740 [facility] ([facility] ID Date Data Source [id number] 08/30/2020 10:25:00 AM EST [facility] ([facility] Name Value Range Interpretation Code Description Data Sosa rce(s) Supporting Document(s) Glucose, Fasting 90 mg/dL 70-100 [facility] ([facility] Blood Urea Nitrogen 12 mg/dL 7-18 [facility] ([facility] Creatinine For GFR 1.00 mg/dL 0.55-1.30 [facility] ([facility] Glomerular Filtration Rate 59.8 MED [facility] ([facility] <content>Units are mL/min/1.73 m2</content>
<content></content>
<content>Chronic Kidney Disease Staging per NKF:</content>
<content></content>
<content>Stage I & II GFR >=60 Normal to Mildly Decreased</content>
<content>Stage III GFR 30- 59 Moderately Decreased</content>
<content>Stage IV GFR 15-29 Severely Decreased</content>
<content>Stage V GFR <15 Very Little GFR Left</content>
<content>ESRD GFR <15 on PARTY DIRECTOR</content>
<content></content> Chloride Level 107 meq/L 98-107 [facility] ([facility] Potassium Serum 5.0 meq/L 3.5-5.1 [facility] ([facility] Sodium Level 139 meq/L 136-145 [facility] ([facility] Anion Gap 5 meq/L 8-16 [facility] ([facility] Calcium Level 9.4 mg/dL 8.8-10.2 [facility] ([facility] Carbon Dioxide Level 27 meq/L 21-32 [facility] ([facility] Ast/Sgot 9 U/L 7-37 [facility] ([facility] Alt/SGPT 16 U/L 12-78 [facility] ([facility] Bilirubin,Total 0.6 mg/dL 0.2-1.0 [facility] ([facility] Total Protein 6.9 GM/DL 6.4-8.2 [facility] ([facility] Alkaline Phosphatase 131 U/L 45-117 [facility] ([facility] Albumin 3.6 GM/DL 3.2-5.2 [facility] ([facility] Albumin/Globulin Ratio 1.1 1.2-2.2 [facility] ([facility] ID Date Data Source [id number] 02/11/2020 01:11:00 PM EDT [facility] ([facility]) Name Value Range Interpretation Code Description Data Sosa rce(s) Supporting Document(s) Magnesium [Mass/volume] in Serum or Plasma 2.3 mg/dL 1.8-2 .4 Normal (applies to non-numeric results) [facility] ID Date Data Source [id number] 02/11/2020 01:11:00 PM EDT [facility] ([facility]) Name Value Range Interpretation Code Description Data Sosa rce(s) Supporting Document(s) Glucose, Fasting 88 mg/dL 70-100 Normal (applies to non-numeric results) [facility] ([facility]) Glomerular Filtration Rate Laboratory test result Normal (applies to non- numeric results) [facility] <content>Units are mL/min/1.73 m2</content>
<content></content>
<content>Chronic Kidney Disease Staging per NKF:</content>
<content></content>
<content>Stage I & II GFR >=60 Normal to Mildly Decreased</content>
<content>Stage III GFR 30- 59 Moderately Decreased</content>
<content>Stage IV GFR 15-29 Severely Decreased</content>
<content>Stage V GFR <15 Very Little GFR Left</content>
<content>ESRD GFR <15 on PARTY DIRECTOR</content>
<content></content> Creatinine For GFR 0.91 mg/dL 0.55-1.30 Normal (applies to non -numeric results) [facility] ([facility]) Blood Urea Nitrogen 11 mg/dL 7-18 Normal (applies to non-nume joel results) [facility] ([facility]) Potassium Serum 4.8 meq/L 3.5-5.1 Normal (applies to non-numeric results) [facility] ([facility]) Sodium Level 137 meq/L 136-145 Normal (applies to non-numeric res ults) [facility] ([facility]) Chloride Level 104 meq/L 98-107 Normal (applies to non-numeric r esults) [facility] ([facility]) Calcium Level 9.4 mg/dL 8.8-10.2 Normal (applies to non-numeric re sults) [facility] ([facility]) Anion Gap 3 meq/L 8-16 Below low normal [facility] ( [facility]) Carbon Dioxide Level 30 meq/L 21-32 Normal (applies to non-num kelsie results) [facility] ([facility]) ID Date Data Source [id number] 02/11/2020 01:11:00 PM EDT [facility] Name Value Range Interpretation Code Description Data Sosa rce(s) Supporting Document(s) White Blood Count 6.6 10 4.0-10.0 Normal (applies to non-numeri c results) [facility] ([facility]) Red Blood Count 4.92 10 4.00-5.40 Normal (applies to non-numeric results) [facility] ([facility]) Hemoglobin 14.5 g/dL 12.0-15.5 Normal (applies to non-numeric resul ts) [facility] ([facility]) Mean Corpuscular Volume 91.9 fl 80.0-96.0 Normal ( applies to non-numeric results) [facility] Mean Corpuscular Hemoglobin 29.5 pg 27.0-33.0 Norm al (applies to non-numeric results) [facility] ([facility]) Hematocrit 45.2 % 36.0-47.0 Normal (applies to non-numeric resul ts) [facility] ([facility]) Mean Corpuscular HGB Conc 32.1 g/dL 32.0-36.5 Normal (applies to non-numeric results) [facility] ([facility]) Platelet Count, Automated 191 10 150-450 Normal (applies to non-numeric results) [facility] ([facility] Red Cell Distribution Width 14.4 % 11.5-14.5 Norm al (applies to non-numeric results) [facility] Nucleated Red Blood Cell % 0.0 % 0-0 Normal (applies to n on-numeric results) [facility] ([facility]) ID Date Data Source [id number] 01/27/2020 01:10:00 PM EDT [facility] ([facility] Name Value Range Interpretation Code Description Data Sosa rce(s) Supporting Document(s) Free T4 1.53 ng/dL 0.76-1.46 [facility] ([facility] Thyroid Stimulating Hormone 2.950 uIU/ML 0.358-3.740 [facility] ([facility] ID Date Data Source [id number] 01/27/2020 01:10:00 PM EDT [facility] ([facility] Name Value Range Interpretation Code Description Data Sosa rce(s) Supporting Document(s) HDL Cholesterol 29 mg/dL [facility] ([facility] Cholesterol Level 131 mg/dL [facility] ([facility] Triglycerides Level 141 mg/dL [facility] ([facility] Non-HDL-C 102 mg/dL [facility] ([facility] Cholesterol Risk Ratio 4.517 [facility] ([facility] LDL Cholesterol 74 mg/dL [facility] ([facility] ID Date Data Source [id number] 01/27/2020 01:10:00 PM EDT [facility] ([facility] Name Value Range Interpretation Code Description Data Sosa e(s) Supporting Document(s) Creatinine For GFR 0.99 mg/dL 0.55-1.30 [facility] ([facility] Blood Urea Nitrogen 12 mg/dL 7-18 [facility] ([facility] Glucose, Fasting 127 mg/dL 70-100 [facility] ([facility] Glomerular Filtration Rate Laboratory test result [facility] ([facility] <content>Units are mL/min/1.73 m2</content>
<content></content>
<content>Chronic Kidney Disease Staging per NKF:</content>
<content></content>
<content>Stage I & II GFR >=60 Normal to Mildly Decreased</content>
<content>Stage III GFR 30- 59 Moderately Decreased</content>
<content>Stage IV GFR 15-29 Severely Decreased</content>
<content>Stage V GFR <15 Very Little GFR Left</content>
<content>ESRD GFR <15 on PARTY DIRECTOR</content>
<content></content> Sodium Level 139 meq/L 136-145 [facility] ([facility] Potassium Serum 4.3 meq/L 3.5-5.1 [facility] ([facility] Anion Gap 6 meq/L 8-16 [facility] ([facility] Chloride Level 103 meq/L 98-107 [facility] ([facility] Calcium Level 9.4 mg/dL 8.8-10.2 [facility] ([facility] Carbon Dioxide Level 30 meq/L 21-32 [facility] ([facility] Ast/Sgot 16 U/L 7-37 [facility] ([facility] Alt/SGPT 23 U/L 12-78 [facility] ([facility] Alkaline Phosphatase 154 U/L 45-117 [facility] ([facility] Total Protein 7.0 GM/DL 6.4-8.2 [facility] ([facility] Bilirubin,Total 0.4 mg/dL 0.2-1.0 [facility] ([facility] Albumin 3.8 GM/DL 3.2-5.2 [facility] ([facility] Albumin/Globulin Ratio 1.2 1.2-2.2 [facility] ([facility] ID Date Data Source [id number] 12/14/2019 06:06:00 PM EDT [facility] ([facility] Name Value Range Interpretation Code Description Data Sosa rce(s) Supporting Document(s) CPK Creatine Phosphokinase 61 U/L 26-192 [facility] ([facility] MB/CK Relative Index 1.64 [facility] ([facility] <content>DIAGNOSIS CRITERIA</content>
<content>MMB ng/ml Relative Index (RI)</content>
<content>NON-AMI < or = 5 N/A</content>
<content>GARNER ZONE > 5 < or = 4</content>
<content>AMI > 5 > 4</content>
<content></content> CK-MB Value Mass Laboratory test result [facility] ([facility] Troponin I Laboratory test result [facility] ([facility] <content>Troponin I Reference Interval f or Siemens [place] LOCI:</content>
<content></content>
<content>99th Percentile= 0.00-0.045 ng/ml</content>
<content></content>
<content>Risk Stratification:</content>
<content><= 0.10 ng/ml Decreased Risk for Adverse Clinical</content>
<content>Events.</content>
<content>0.10-1.50 ng/ml Increased Risk for Adverse Clinical</content>
<content>Events. Evaluation of additional</content>
<content>criterion and/or repeat testing in 2-6</content>
<content>hours is suggested to rule out myocardial</content>
<content>damage.</content>
<content>>= 1.50 ng/ml Indicative of Myocardial Injury.</content>
<content></content> ID Date Data Source [id number] 12/14/2019 02:08:00 PM EDT [facility] ([facility] Name Value Range Interpretation Code Description Data Sosa rce(s) Supporting Document(s) Laboratory test finding (navigational concept) 44.0 % 38.0-51.0 [facility] ([facility] Laboratory test finding (navigational concept) 140 meq/L 136-145 [facility] ([facility] Laboratory test finding (navigational concept) 92 mg/dL 70-105 [facility] ([facility] Laboratory test finding (navigational concept) 104 meq/L 98-109 [facility] ([facility] Laboratory test finding (navigational concept) 4.2 meq/L 3.5-5.1 [facility] ([facility] Laboratory test finding (navigational concept) 4.9 mg/dL 4.5-5.3 [facility] ([facility] Laboratory test finding (navigational concept) 28.0 MM/L 23.0-27.0 [facility] ([facility] Laboratory test finding (navigational concept) 9 mg/dL 8-26 [facility] ([facility] Laboratory test finding (navigational concept) 0.8 mg/dL 0.6-1.3 [facility] ([facility] ID Date Data Source [id number] 12/14/2019 01:54:00 PM EDT [facility] ([facility] Name Value Range Interpretation Code Description Data Sosa rce(s) Supporting Document(s) Natriuretic peptide.B prohormone N-Terminal [Mass/volu me] in Serum or Plasma 453 pg/mL [facility] ([facility] Lipoprotein lipase [Enzymatic activity/volume] in Serum or P lasma 102 U/L 73-393 [facility] ([facility] Thyrotropin [Units/volume] in Serum or Plasma 0.106 uIU/ML 0.358-3.74 0 [facility] ([facility] C reactive protein [Mass/volume] in Serum or Plasma by High sensitivity method 0.30 mg/dL 0.00-0.30 [facility] ([facility] Thyroxine (T4) free [Mass/volume] in Serum or Plasma 1.59 ng/dL 0.76- 1.46 [facility] ([facility] ID Date Data Source [id number] 12/14/2019 01:54:00 PM EDT [facility] ([facility] Name Value Range Interpretation Code Description Data Sosa rce(s) Supporting Document(s) Alkaline Phosphatase 144 U/L 45-117 [facility] ([facility] Ast/Sgot 19 U/L 7-37 [facility] ([facility] Alt/SGPT 16 U/L 12-78 [facility] ([facility] Bilirubin,Total 0.5 mg/dL 0.2-1.0 [facility] ([facility] Total Protein 7.0 GM/DL 6.4-8.2 [facility] ([facility] Bilirubin,Direct 0.1 mg/dL 0.0-0.2 [facility] ([facility] Albumin 3.8 GM/DL 3.2-5.2 [facility] ([facility] Albumin/Globulin Ratio 1.19 1.00-1.93 NV [facility] ([facility] ID Date Data Source [id number] 12/14/2019 01:54:00 PM EDT [facility] ([facility] Name Value Range Interpretation Code Description Data Sosa rce(s) Supporting Document(s) CPK Creatine Phosphokinase 67 U/L 26-192 [facility] ([facility] CK-MB Value Mass Laboratory test result [facility] ([facility] MB/CK Relative Index 1.49 [facility] ([facility] <content>DIAGNOSIS CRITERIA</content>
<content>MMB ng/ml Relative Index (RI)</content>
<content>NON-AMI < or = 5 N/A</content>
<content>GARNER ZONE > 5 < or = 4</content>
<content>AMI > 5 > 4</content>
<content></content> Troponin I Laboratory test result [facility] ([facility] <content>Troponin I Reference Interval f or Siemens [place] LOCI:</content>
<content></content>
<content>99th Percentile= 0.00-0.045 ng/ml</content>
<content></content>
<content>Risk Stratification:</content>
<content><= 0.10 ng/ml Decreased Risk for Adverse Clinical</content>
<content>Events.</content>
<content>0.10-1.50 ng/ml Increased Risk for Adverse Clinical</content>
<content>Events. Evaluation of additional</content>
<content>criterion and/or repeat testing in 2-6</content>
<content>hours is suggested to rule out myocardial</content>
<content>damage.</content>
<content>>= 1.50 ng/ml Indicative of Myocardial Injury.</content>
<content></content> ID Date Data Source [id number] 12/14/2019 01:54:00 PM EDT [facility] ([facility] Name Value Range Interpretation Code Description Data [facility] rce(s) Supporting Document(s) aPTT in Platelet poor plasma by Coagulation assay 33.1 s 25.0-38. 4 [facility] ([facility] ID Date Data Source [id number] 12/14/2019 01:54:00 PM EDT [facility] ([facility] Name Value Range Interpretation Code Description [facility]) Prothrombin Time 12.8 s 11.8-14.0 [facility] ([facility] Inr 0.99 [facility] ([facility] THERAPUTIC HUMAN INR VALUES INDICATIONS NORMAL RANGES PROPHYLAXIS/TREATMENT OF: VENOUS THROMBOSIS 2.0-3.0 PULMONARY EMBOLISM 2.0-3.0 PREVENTION OF SYSTEMIC EMBOLISM FROM: TISSUE HEART VALVES 2.0-3.0 ACUTE MYOCARDIAL INFARCTION 2.0-3.0 VALVULAR HEART DISEASE 2.0-3.0 ATRIAL FIBRILLATION 2.0-3.0 MECHANICAL VALVES(HIGH RISK) 2.5-3.5 RECURRENT MYOCARDIAL INFARCTION 2.5-3.5 ID Date Data Source [id number] 12/14/2019 01:54:00 PM EDT [facility] ([facility] Name Value Range Interpretation Code Description Data [facility] Supporting Document(s) White Blood Count 6.0 10 4.0-10.0 [facility] ([facility] Hemoglobin 14.0 g/dL 12.0-15.5 [facility] ([facility] Hematocrit 43.7 % 36.0-47.0 [facility] ([facility] Red Blood Count 4.70 10 4.00-5.40 [facility] ([facility] Mean Corpuscular HGB Conc 32.0 g/dL 32.0-36.5 [facility] ([facility] Mean Corpuscular Hemoglobin 29.8 pg 27.0-33.0 [facility] ([facility] Mean Corpuscular Volume 93.0 fl 80.0-96.0 M [facility] ([facility] Platelet Count, Automated 163 10 150-450 [facility] ([facility] Red Cell Distribution Width 13.7 % 11.5-14.5 [facility] ([facility] Lymph % 20.8 % 24.0-44.0 [facility] ([facility] Neutrophils % 69.9 % 36.0-66.0 [facility] ([facility] [place] % 5.5 % 0.0-5.0 [facility] ([facility] Immature Granulocyte % 0.3 % 0-3.0 [facility] ([facility] Eos % 2.5 % 0.0-3.0 [facility] ([facility] Baso % 1.0 % 0.0-1.0 [facility] ([facility] Nucleated Red Blood Cell % 0.0 % 0-0 [facility] ([facility] Lymph # 1.3 10 1.5-5.0 [facility] ([facility] Neutrophils # 4.2 10 1.5-8.5 [facility] ([facility] [place] # 0.3 10 0.0-0.8 [facility] ([facility] Eos # 0.2 10 0.0-0.5 [facility] ([facility] Baso # 0.1 10 0.0-0.2 [facility] ([facility] ID Date Data Source [id number] 10/21/2019 12:00:00 AM EST [facility] Debbi Cervantes MD Patient Name: DEBBI [id number] [id number] Date of : 1960[place] [address] Date of Exam: 10/21/2019#: Fax: [phone] EXAM: CT ANGIOGRAPHY, CHESTCLINICAL INFORMATION: Followup nodules and thoracic aorta.Comparison 07/28/18 and 11/28/17.Low dose 64 slice contrast enhanced [address] CT examination of the chest wasobtained using the pulmonary angio protocol with 1.5 mm thick incrementsalong with standard 3 mm thick increments through the whole chest.Sagittal, coronal, and bilateral arterial oblique reconstructions wereobtained with post processing at the physicians workstation when necessary. Contrast utilized 100 cc of Optiray 350.Once again, there are diffuse emphysematous changes, most prominent in theright lower lobe, stable. Diffuse interstitial fibrotic change is stable.There is mild right apical pleural thickening. There is a subcentimeternodular opacity in the right upper lobe on Image 27 which is stable.Subcentimeter nodular opacity in the r ight upper lobe on Image 45 isstable. There is a 7 mm nodular density in the right lower lobe on Image76 and 77 which is unchanged. There is a laterally located 4 mm nodularopacity in the left lower lobe which is stable. No new nodules orinfiltrates are seen. There is no pleural or pericardial effusion. Thereis no mediastinal, hilar or chest wall lymphadenopathy. Heart is normal insize. There is mild scattered atherosclerotic calcification of thethoracic aorta without aneurysm or dissection. There is mild stableectasia of the distal thoracic aorta reaching a maximum diameter of 2.5 cm. There are degenerative changes of the spine. There is evidence of priorcholecystectomy in the visualized upper abdomen.IMPRESSION:Stable chronic emphysematous and fibrotic changes throughout both lungs.Stable nodules in each lung, with three stable subcentimeter nodulardensities in the right lung and one in the left lung as discussed in detailabove. These have remained stable for essentially two years and can beconsidered benign.Mild stable ectasia of the distal thoracic aorta with no aneurysm ordissection.Accredited by the [employer] in [place].PAMELA Esqueda/Giselle you for referring DEBBI BASSLAND to our office. Electronically Signed - SCOTT GARNER MD 10/21/19 16:53 Name Value Range Interpretation Code Description Data Sosa rce(s) Supporting Document(s) Procedure Social History Code Duration Value Status Description Data Source(s ) Smoking 08/30/2020 12:00:00 AM EST Patient is a former smoker completed Patient is a former smoker [facility] ([facility] Smoking 07/27/2020 12:00:00 AM EST Patient is a former smoker completed Patient is a former smoker [facility] ([facility] Smoking 07/28/2019 12:00:00 AM EST Patient is a former smoker completed Patient is a former smoker [facility] ([facility]) Vital Signs ID Date Data Source UNK Name Value Range Interpretation Code Description Data Source(s) Body surface area Derived from formula 1.51 m2 1.51 m2 [facility] ([facility]) Body mass index (BMI) [Ratio] 19.8 kg/m2 19.8 k g/m2 [facility] ([facility]) Body height 63 [in_i] 63 [in_i] [facility] 5'3" Body weight 112.00 [lb_av] 112.00 [lb_av] [facility] T ([facility]) Body mass index (BMI) [Ratio] 20.2 kg/m2 20.2 k g/m2 [facility] ([facility] [place] body weight 115 [lb_av] 115 [lb_av] [facility] T ([facility] Body weight 115.00 [lb_av] 115.00 [lb_av] [facility] T ([facility] Body height 63.25 [in_i] 63.25 [in_i] [facility] ([facility] 5'3.25" Respiratory rate 16 /min 16 /min [facility] ( [facility] Body temperature 97.2 [degF] 97.2 [degF] [facility] ([facility] Heart rate 85 /min 85 /min [facility] ([facility] Diastolic blood pressure 82 mm[Hg] 82 mm[Hg] [facility] ([facility] Systolic blood pressure 131 mm[Hg] 131 mm[Hg] [facility] ([facility] Body mass index (BMI) [Ratio] 19.9 kg/m2 19.9 k g/m2 [facility] ([facility] [place] body weight 115 [lb_av] 115 [lb_av] [facility] T ([facility] Oxygen saturation in Arterial blood by Pulse oximetry 96 % 96 % [facility] ([facility] Body weight 113.38 [lb_av] 113.38 [lb_av] [facility] T ([facility] Body height 63.25 [in_i] 63.25 [in_i] [facility] ([facility] 5'3.25" Respiratory rate 16 /min 16 /min [facility] ( [facility] Body temperature 97.3 [degF] 97.3 [degF] [facility] ([facility] Heart rate 92 /min 92 /min [facility] ([facility] Diastolic blood pressure 90 mm[Hg] 90 mm[Hg] [facility] ([facility] Systolic blood pressure 136 mm[Hg] 136 mm[Hg] [facility] ([facility] Diastolic blood pressure 87 mm[Hg] 87 mm[Hg] [facility] ([facility] Systolic blood pressure 142 mm[Hg] 142 mm[Hg] [facility] Body mass index (BMI) [Ratio] 19.5 kg/m2 19.5 k g/m2 [facility] ([facility]) Body height 63 [in_i] 63 [in_i] [facility] ([facility]) 5'3" Body weight 110.00 [lb_av] 110.00 [lb_av] [facility] T ([facility]) Body temperature 98.0 [degF] 98.0 [degF] [facility] ([facility]) Oxygen saturation in Arterial blood by Pulse oximetry 98 % 98 % [facility] ([facility]) Respiratory rate 20 /min 20 /min [facility] ( [facility]) Heart rate 79 /min 79 /min [facility] ([facility]) Diastolic blood pressure 86 mm[Hg] 86 mm[Hg] [facility] ([facility]) Systolic blood pressure 131 mm[Hg] 131 mm[Hg] [facility] Body surface area Derived from formula 1.50 m2 1.50 m2 [facility] ([facility]) Body mass index (BMI) [Ratio] 19.5 kg/m2 19.5 k g/m2 [facility] ([facility]) Body height 63 [in_i] 63 [in_i] [facility] ([facility] 5'3" Body weight 110.38 [lb_av] 110.38 [lb_av] [facility] T ([facility]) Heart rate 74 /min 74 /min [facility] ([facility] Diastolic blood pressure 72 mm[Hg] 72 mm[Hg] [facility] ([facility]) Systolic blood pressure 112 mm[Hg] 112 mm[Hg] M [facility] ([facility]) Body surface area 1.50 m2 1.50 m2 [facility] ([facility]) Body mass index (BMI) [Ratio] 19.5 kg/m2 19.5 k g/m2 [facility] ([facility]) Body height 63 [in_i] 63 [in_i] [facility] ([facility], [facility]) 5'3" Body weight 110.00 [lb_av] 110.00 [lb_av] [facility] T ([facility], [facility]) pt stated Body temperature 97.9 [degF] 97.9 [degF] [facility] ([facility], [facility]) Oxygen saturation in Arterial blood by Pulse oximetry 98 % 98 % [facility] ([facility], [facility]) Respiratory rate 16 /min 16 /min [facility] ( [facility], [facility]) Heart rate 66 /min 66 /min [facility] ([facility], [facility]) Diastolic blood pressure 80 mm[Hg] 80 mm[Hg] [facility] ([facility], [facility]) Systolic blood pressure 140 mm[Hg] 140 mm[Hg] M EDENT ([facility], [facility]) Body surface area 1.50 m2 1.50 m2 [facility] ([facility]) Oxygen saturation in Arterial blood by Pulse oximetry 99 % 99 % [facility] ([facility]) Body mass index (BMI) [Ratio] 19.5 kg/m2 19.5 k g/m2 [facility] ([facility]) Body height 63 [in_i] 63 [in_i] [facility] ([facility] 5'3" Body weight 110.00 [lb_av] 110.00 [lb_av] [facility] T ([facility]) Heart rate 88 /min 88 /min [facility] ([facility] Diastolic blood pressure 84 mm[Hg] 84 mm[Hg] [facility] ([facility]) Systolic blood pressure 120 mm[Hg] 120 mm[Hg] M [facility] ([facility]) Body mass index (BMI) [Ratio] 19.7 kg/m2 19.7 k g/m2 [facility] ([facility], [facility]) Body height 63 [in_i] 63 [in_i] [facility] ([facility], [facility]) 5'3" Body weight 111.00 [lb_av] 111.00 [lb_av] [facility] T ([facility], [facility]) Body temperature 98.1 [degF] 98.1 [degF] [facility] ([facility], [facility]) Oxygen saturation in Arterial blood by Pulse oximetry 97 % 97 % [facility] ([facility], [facility]) Respiratory rate 18 /min 18 /min [facility] ( [facility], [facility]) Heart rate 88 /min 88 /min [facility] ([facility], [facility]) Diastolic blood pressure 80 mm[Hg] 80 mm[Hg] [facility] ([facility], [facility]) Systolic blood pressure 112 mm[Hg] 112 mm[Hg] M EDENT ([facility], [facility]) Diastolic blood pressure 78 mm[Hg] 78 mm[Hg] [facility] ([facility], [facility]) recheck, left manual Systolic blood pressure 124 mm[Hg] 124 mm[Hg] M [facility] ([facility], [facility]) recheck, left manual Body mass index (BMI) [Ratio] 19.7 kg/m2 19.7 k g/m2 [facility] ([facility], [facility]) Body height 63 [in_i] 63 [in_i] [facility] ([facility], [facility]) 5'3" Body weight 111.00 [lb_av] 111.00 [lb_av] [facility] T ([facility], [facility]) Body temperature 98.0 [degF] 98.0 [degF] [facility] ([facility], [facility]) Oxygen saturation in Arterial blood by Pulse oximetry 98 % 98 % [facility] ([facility], [facility]) Respiratory rate 20 /min 20 /min [facility] ( [facility], [facility]) Heart rate 87 /min 87 /min [facility] ([facility], [facility]) Diastolic blood pressure 98 mm[Hg] 98 mm[Hg] [facility] ([facility], [facility]) Systolic blood pressure 150 mm[Hg] 150 mm[Hg] M [facility] ([facility], [facility]) Body surface area 1.51 m2 1.51 m2 [facility] ([facility]) Body mass index (BMI) [Ratio] 19.7 kg/m2 19.7 k g/m2 [facility] ([facility]) Body height 63 [in_i] 63 [in_i] [facility] ([facility] 5'3" Body weight 111.00 [lb_av] 111.00 [lb_av] [facility] T ([facility]) Heart rate 78 /min 78 /min [facility] ([facility] Diastolic blood pressure 64 mm[Hg] 64 mm[Hg] [facility] ([facility]) Systolic blood pressure 112 mm[Hg] 112 mm[Hg] M [facility] ([facility]) Body mass index (BMI) [Ratio] 20.2 kg/m2 20.2 k g/m2 [facility] ([facility]) Body weight 112.00 [lb_av] 112.00 [lb_av] [facility] T ([facility]) Body height 62.5 [in_i] 62.5 [in_i] [facility] ([facility]) 5'2.50" Body temperature 98.1 [degF] 98.1 [degF] [facility] ([facility])
[2020-09-24 11:19] LABS: INR 1.02; PROTHROMBIN TIME 13.6 SECONDS (12.5-14.3)
[2020-09-24 11:20] LABS: PARTIAL THROMBOPLASTIN TIME 29.9 SECONDS (24.2-38.5)
[2020-09-24 11:28] LABS: RSV AMPLIFICATION NEGATIVE (NEGATIVE)
[2020-09-24] MEDS ORDERED: CLOPIDOGREL 300 MG TAB (PLAVIX) PO STA (12:02)
[2020-09-24 12:32] VITALS: BP 130/75
--- NOTE | 2020-09-26 08:22 | ECGEPIP ---
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
--- NOTE | 2020-09-26 08:23 | ECGEPIP ---
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
== END 2020-09-24 12:35 | disposition short-term general hospital (02) ==
LOC: EDBD 09:54 → M ED 09:54
DX: I20.0 Unstable angina (principal); I10 Essential (primary) hypertension; J44.9 Chronic obstructive pulmonary disease, unspecified; E78.5 Hyperlipidemia, unspecified; K21.9 Gastro-esophageal reflux disease without esophagitis; I25.2 Old myocardial infarction; Z79.899 Other long term (current) drug therapy; Z79.890 Hormone replacement therapy; Z88.5 Allergy status to narcotic agent; Z87.891 Personal history of nicotine dependence
CPT/HCPCS: 71045; 80047; 80076; 83690; 84484; 85025; 85610; 85730; 87631; 93005; 93041; 94760; 96365; 96366; 96375; 99285; J1644; J3010

== ENCOUNTER 2020-09-27 13:10 | Emergency (ER) | payer BC, OTHER ==
[~2020-09-27] VITALS: Ht 160 cm; Wt 51.1 kg
[~2020-09-27 13:10] MED LIST changes: +ALBU8.5H INH; +ATOR40TA75 PO
[2020-09-27] MEDS ORDERED: BRIL90TA PO (13:30)
--- NOTE | 2020-09-27 13:36 | REP ---
INDICATION: CHEST PAIN. COMPARISON: Comparison chest x-ray 24 September 2020. TECHNIQUE: Portable upright AP chest radiograph. Two views presented. FINDINGS: The lungs are somewhat hyperinflated. No infiltrate is seen. Interstitial markings are very slightly prominent in the bases unchanged. There are emphysematous changes in the upper lobes unchanged. Findings are consistent with COPD. Heart size is normal. Thoracic aorta is tortuous as before.. IMPRESSION: Hyperinflation consistent with COPD. No acute disease seen.. <Electronically signed by Brendon Siddiqui > 09/27/20 [id number]
[2020-09-27 14:04] LABS: BASO % 0.7 % (0.0-1.0); EOS # 0.2 10^3/uL (0.0-0.5); EOS % 2.9 % (0.0-3.0); HEMATOCRIT 41.9 % (36.0-47.0); HEMOGLOBIN 13.4 g/dl (12.0-15.5); LYMPH # 1.3 10^3/uL (1.5-5.0); LYMPH % 22.3 % (24.0-44.0); MEAN CORPUSCULAR HEMOGLOBIN 29.9 pg (27.0-33.0); MEAN CORPUSCULAR VOLUME 93.5 fl (80.0-96.0); MONO # 0.4 10^3/uL (0.0-0.8); MONO % 7.2 % (0.0-5.0); NEUTROPHILS # 3.9 10^3/uL (1.5-8.5); NEUTROPHILS % 66.4 % (36.0-66.0); RED BLOOD COUNT 4.48 10^6/uL (4.00-5.40); WHITE BLOOD COUNT 5.8 10^3/uL (4.0-10.0)
[2020-09-27 14:29] LABS: ALBUMIN 3.6 GM/DL (3.2-5.2); BILIRUBIN,DIRECT 0.1 MG/DL (0.0-0.2); BILIRUBIN,TOTAL 0.3 MG/DL (0.2-1.0); TOTAL PROTEIN 6.7 GM/DL (6.4-8.2)
[2020-09-27] MEDS ORDERED: COMBIVENT RESPIMAT 100-20MCG INHALER 4GM INH ONE (14:45)
[2020-09-27 15:13] LABS: CALCIUM LEVEL 9.1 MG/DL (8.8-10.2); CK-MB VALUE MASS 2.6 NG/ML (<3.6); CREATININE FOR GFR 1.03 MG/DL (0.55-1.30); GLOMERULAR FILTRATION RATE 57.8 (>45); MB/CK RELATIVE INDEX 1.07 (< OR =4); POTASSIUM SERUM 3.7 MEQ/L (3.5-5.1); TROPONIN I 7.33 NG/ML (< 0.10)
[2020-09-27 17:44] LABS: CK-MB VALUE MASS 2.4 NG/ML (<3.6); MB/CK RELATIVE INDEX 1.13 (< OR =4); TROPONIN I 8.23 NG/ML (< 0.10)
[2020-09-27] MEDS ORDERED: HEPARIN DRIP 25,000 UNITS in IV 1 EA IV SCH (18:03)
[2020-09-27] MEDS ORDERED: HEPARIN SOD (PORCINE) 5000UNITS/ML 1ML VIAL/SYRINGE IV ONE (18:15)
[2020-09-27 18:34] LABS: INR 1.01; PROTHROMBIN TIME 13.5 SECONDS (12.5-14.3)
[2020-09-27 19:07] LABS: RSV AMPLIFICATION NEGATIVE (NEGATIVE)
[2020-09-27 19:45] VITALS: BP 119/87
--- NOTE | 2020-09-28 05:46 | ECGEPIP ---
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
--- NOTE | 2020-09-28 05:55 | ECGEPIP ---
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
== END 2020-09-27 20:29 | disposition short-term general hospital (02) ==
LOC: M ED 13:10
DX: I21.4 Non-ST elevation (NSTEMI) myocardial infarction (principal); I10 Essential (primary) hypertension; J44.9 Chronic obstructive pulmonary disease, unspecified; E78.5 Hyperlipidemia, unspecified; I25.2 Old myocardial infarction; Z95.1 Presence of aortocoronary bypass graft; Z95.5 Presence of coronary angioplasty implant and graft; Z79.899 Other long term (current) drug therapy; Z79.82 Long term (current) use of aspirin; Z88.5 Allergy status to narcotic agent; Z87.891 Personal history of nicotine dependence
CPT/HCPCS: 71045; 80048; 80076; 82550; 82553; 83880; 84484; 85025; 85610; 85730; 87631; 93005; 94640; 96365; 96366; 99285; J1644

== ENCOUNTER → 2020-10-03 | Outpatient (REF) | payer OTHER ==
[~2020-10-03] MED LIST changes: +BRIL90TA PO
[2020-10-03 18:00] LABS: BASO % 0.8 % (0.0-1.0); EOS # 0.1 10^3/uL (0.0-0.5); EOS % 2.1 % (0.0-3.0); HEMATOCRIT 39.7 % (36.0-47.0); HEMOGLOBIN 12.2 g/dl (12.0-15.5); LYMPH # 1.3 10^3/uL (1.5-5.0); LYMPH % 23.7 % (24.0-44.0); MEAN CORPUSCULAR HEMOGLOBIN 29.2 pg (27.0-33.0); MEAN CORPUSCULAR HGB CONC 30.7 g/dl (32.0-36.5); MONO # 0.3 10^3/uL (0.0-0.8); MONO % 5.3 % (0.0-5.0); NEUTROPHILS # 3.6 10^3/uL (1.5-8.5); NEUTROPHILS % 67.9 % (36.0-66.0); PLATELET COUNT, AUTOMATED 145 10^3/uL (150-450); RED BLOOD COUNT 4.18 10^6/uL (4.00-5.40); WHITE BLOOD COUNT 5.3 10^3/uL (4.0-10.0)
[2020-10-03 18:29] LABS: BLOOD UREA NITROGEN 9 MG/DL (7-18); CALCIUM LEVEL 9.3 MG/DL (8.8-10.2); CARBON DIOXIDE LEVEL 28 MEQ/L (21-32); CHLORIDE LEVEL 103 MEQ/L (98-107); CREATININE FOR GFR 0.95 MG/DL (0.55-1.30); GLOMERULAR FILTRATION RATE > 60.0 (>45); GLUCOSE, FASTING 102 MG/DL (70-100); POTASSIUM SERUM 4.5 MEQ/L (3.5-5.1); SODIUM LEVEL 140 MEQ/L (136-145)
== END ==
LOC: M LABDRWAD 17:15
PROVIDERS: ATTEND Family Medicine
DX: I25.10 Atherosclerotic heart disease of native coronary artery without angina pectoris (principal)

== ENCOUNTER → 2020-11-11 | Outpatient (REF) | payer OTHER ==
[2020-11-11 13:38] LABS: FREE T4 1.2 NG/DL (0.76-1.46); THYROID STIMULATING HORMONE 7.81 uIU/ML (0.358-3.740)
== END ==
LOC: M LABDRWAD 12:38
PROVIDERS: ATTEND Family Medicine
DX: E03.9 Hypothyroidism, unspecified (principal)

== ENCOUNTER → 2021-01-10 | Outpatient (REF) | payer OTHER ==
[2021-01-10 14:56] LABS: CHOLESTEROL RISK RATIO 3.352 (<5)
== END ==
LOC: M LABDRWAD 12:19
PROVIDERS: ATTEND Nurse Practitioner Adult Health
DX: I25.10 Atherosclerotic heart disease of native coronary artery without angina pectoris (principal); E78.2 Mixed hyperlipidemia

== ENCOUNTER → 2021-01-10 | Outpatient (REF) | payer OTHER ==
[2021-01-10 14:05] LABS: FREE T4 1.36 NG/DL (0.76-1.46); THYROID STIMULATING HORMONE 1.23 uIU/ML (0.358-3.740)
== END ==
LOC: M LABDRWAD 12:20
PROVIDERS: ATTEND Family Medicine
DX: E03.9 Hypothyroidism, unspecified (principal)

== ENCOUNTER → 2021-06-13 | Outpatient (REF) | payer OTHER ==
[2021-06-14 18:08] LABS: ENDOMYSIAL ABY IgA Negative (Negative); TISSUE TRANSGLUTAMINASE IgA <2 U/mL (0-3); TISSUE TRANSGLUTAMINASE IgG <2 U/mL (0-5)
== END ==
LOC: M LABDRWAD 12:23
PROVIDERS: ATTEND Physician Assistant Medical
DX: R10.13 Epigastric pain (principal); R13.10 Dysphagia, unspecified; K59.00 Constipation, unspecified; R19.7 Diarrhea, unspecified; R68.81 Early satiety

== ENCOUNTER → 2021-07-18 | Outpatient (REF) | payer OTHER ==
[2021-07-18 17:13] LABS: FREE T4 1.51 NG/DL (0.76-1.46); THYROID STIMULATING HORMONE 0.454 uIU/ML (0.358-3.740)
== END ==
LOC: M LABDRWAD 15:55
PROVIDERS: ATTEND Family Medicine
DX: E03.9 Hypothyroidism, unspecified (principal)

== ENCOUNTER → 2021-10-04 | Outpatient (REF) | payer OTHER | LOC: M LAB REF 12:18 | PROVIDERS: ATTEND Physician Assistant Medical | DX: R19.7 Diarrhea, unspecified (principal); K59.00 Constipation, unspecified; R14.0 Abdominal distension (gaseous); R10.13 Epigastric pain ==

== ENCOUNTER → 2021-10-11 | Outpatient (REF) | payer OTHER ==
[2021-10-11 17:28] LABS: FREE T4 1.59 NG/DL (0.76-1.46); THYROID STIMULATING HORMONE 0.469 uIU/ML (0.358-3.740)
== END ==
LOC: M LABDRWAD 16:28
PROVIDERS: ATTEND Family Medicine
DX: E03.9 Hypothyroidism, unspecified (principal)

== ENCOUNTER → 2021-11-08 | Outpatient (REF) | payer OTHER ==
[2021-11-08 15:50] LABS: BLOOD UREA NITROGEN 14 MG/DL (7-18); CARBON DIOXIDE LEVEL 28 MEQ/L (21-32); CHLORIDE LEVEL 107 MEQ/L (98-107); CREATININE FOR GFR 0.82 MG/DL (0.55-1.30); GLOMERULAR FILTRATION RATE > 60.0 (>45); GLUCOSE, FASTING 79 MG/DL (70-100); POTASSIUM SERUM 4.6 MEQ/L (3.5-5.1); SODIUM LEVEL 139 MEQ/L (136-145)
[2021-11-08 15:51] LABS: ALT/SGPT 22 U/L (12-78); BILIRUBIN,TOTAL 0.4 MG/DL (0.2-1.0); CALCIUM LEVEL 9.3 MG/DL (8.8-10.2); TOTAL PROTEIN 6.9 GM/DL (6.4-8.2)
== END ==
LOC: M LABDRWAD 12:33
PROVIDERS: ATTEND Physician Assistant Medical
DX: R10.13 Epigastric pain (principal); R14.0 Abdominal distension (gaseous); K59.00 Constipation, unspecified; R19.7 Diarrhea, unspecified; R68.81 Early satiety; R13.10 Dysphagia, unspecified

== ENCOUNTER → 2021-12-06 | Outpatient (REF) | payer OTHER ==
[2021-12-06 13:30] LABS: FREE T4 1.24 NG/DL (0.76-1.46); THYROID STIMULATING HORMONE 3.19 uIU/ML (0.358-3.740)
== END ==
LOC: M LAB REF 12:12 → M LABDRWAD 12:12
PROVIDERS: ATTEND Family Medicine
DX: E03.9 Hypothyroidism, unspecified (principal)

== ENCOUNTER → 2022-04-16 | Outpatient (REF) | payer OTHER ==
[2022-04-16 17:00] LABS: ALBUMIN 3.5 GM/DL (3.2-5.2); BILIRUBIN,TOTAL 0.3 MG/DL (0.2-1.0); CALCIUM LEVEL 9.6 MG/DL (8.8-10.2); CHOLESTEROL RISK RATIO 3.793 (<5); CREATININE FOR GFR 1.08 MG/DL (0.55-1.30); FREE T4 1.39 NG/DL (0.76-1.46); GLOMERULAR FILTRATION RATE 54.5 (>45); POTASSIUM SERUM 4.6 MEQ/L (3.5-5.1); THYROID STIMULATING HORMONE 4.76 uIU/ML (0.358-3.740); TOTAL PROTEIN 6.5 GM/DL (6.4-8.2)
== END ==
LOC: M LABDRWAD 12:32
PROVIDERS: ATTEND Family Medicine
DX: E03.9 Hypothyroidism, unspecified (principal); I25.10 Atherosclerotic heart disease of native coronary artery without angina pectoris; I10 Essential (primary) hypertension; Z71.3 Dietary counseling and surveillance

== ENCOUNTER → 2022-05-11 | Outpatient (CLI) | payer BC, OTHER | LOC: M RAD 15:15 | PROVIDERS: ATTEND Physician Assistant | DX: R22.32 Localized swelling, mass and lump, left upper limb (principal) ==

== ENCOUNTER → 2022-05-29 | Outpatient (REF) | payer BC, OTHER ==
[2022-05-29 19:07] LABS: FREE T4 1.23 NG/DL (0.76-1.46); THYROID STIMULATING HORMONE 6.08 uIU/ML (0.358-3.740)
== END ==
LOC: M LABDRWAD 16:06
PROVIDERS: ATTEND Family Medicine
DX: E03.9 Hypothyroidism, unspecified (principal)

== ENCOUNTER → 2022-08-16 | Outpatient (REF) | payer OTHER ==
[2022-08-16 18:21] LABS: FREE T4 1.5 NG/DL (0.89-1.76); THYROID STIMULATING HORMONE 2.029 uIU/ML (0.55-4.78)
== END ==
LOC: M LABDRWAD 15:56
PROVIDERS: ATTEND Family Medicine
DX: E03.9 Hypothyroidism, unspecified (principal)

== ENCOUNTER → 2022-10-26 | Outpatient (CLI) | payer BC, OTHER | LOC: M WHC 09:31 | PROVIDERS: ATTEND Family Medicine | DX: Z12.31 Encounter for screening mammogram for malignant neoplasm of breast (principal); M81.0 Age-related osteoporosis without current pathological fracture; M85.852 Other specified disorders of bone density and structure, left thigh ==

== ENCOUNTER → 2023-04-16 | Outpatient (REF) | payer BC, OTHER ==
[2023-04-16 13:26] LABS: BASO # 0.1 10^3/uL (0.0-0.2); BASO % 0.9 % (0.0-1.0); EOS # 0.2 10^3/uL (0.0-0.5); EOS % 2.8 % (0.0-3.0); HEMATOCRIT 43.8 % (36.0-47.0); HEMOGLOBIN 13.8 g/dl (12.0-15.5); LYMPH # 1.5 10^3/uL (1.5-5.0); LYMPH % 27.9 % (24.0-44.0); MEAN CORPUSCULAR HEMOGLOBIN 29.2 pg (27.0-33.0); MEAN CORPUSCULAR HGB CONC 31.5 g/dl (32.0-36.5); MEAN CORPUSCULAR VOLUME 92.6 fl (80.0-96.0); MONO # 0.4 10^3/uL (0.0-0.8); MONO % 6.6 % (2.0-8.0); NEUTROPHILS # 3.3 10^3/uL (1.5-8.5); NEUTROPHILS % 61.4 % (36.0-66.0); PLATELET COUNT, AUTOMATED 174 10^3/uL (150-450); RED BLOOD COUNT 4.73 10^6/uL (4.00-5.40); WHITE BLOOD COUNT 5.3 10^3/uL (4.0-10.0)
[2023-04-16 13:34] LABS: ALBUMIN 3.6 G/DL (3.2-5.2); ALKALINE PHOSPHATASE 137 U/L (46-116); ALT/SGPT 9 U/L (7.0-40); AST/SGOT 10 U/L (<34); BILIRUBIN,TOTAL 0.4 MG/DL (0.3-1.2); BLOOD UREA NITROGEN 16 MG/DL (9-23); CALCIUM LEVEL 9.5 MG/DL (8.3-10.6); CARBON DIOXIDE LEVEL 27 MMOL/L (20-31); CHLORIDE LEVEL 107 MMOL/L (98-107); CHOLESTEROL LEVEL 113 MG/DL (<200); CHOLESTEROL RISK RATIO 3.64 (<5); CREATININE FOR GFR 0.87 MG/DL (0.55-1.30); GLOMERULAR FILTRATION RATE > 60.0 (>45); GLUCOSE, FASTING 86 MG/DL (74-106); LDL CHOLESTEROL 61.6 MG/DL (<100); POTASSIUM SERUM 4.5 MMOL/L (3.5-5.1); SODIUM LEVEL 140 MMOL/L (136-145); TOTAL PROTEIN 6.6 G/DL (5.7-8.2); TRIGLYCERIDES LEVEL 102 MG/DL (<150)
== END ==
LOC: M LABDRWAD 12:30
PROVIDERS: ATTEND Family Medicine
DX: I25.10 Atherosclerotic heart disease of native coronary artery without angina pectoris (principal)

== ENCOUNTER → 2023-06-26 | Outpatient (REF) | payer BC, OTHER ==
[2023-06-26 13:59] LABS: FREE T4 1.44 NG/DL (0.89-1.76); THYROID STIMULATING HORMONE 1.667 uIU/ML (0.55-4.78)
== END ==
LOC: M LABDRWAD 12:55
PROVIDERS: ATTEND Family Medicine
DX: E03.9 Hypothyroidism, unspecified (principal)

== ENCOUNTER → 2023-07-01 | Outpatient (CLI) | payer BC, OTHER | LOC: M RAD 12:56 | PROVIDERS: ATTEND Physician Assistant Medical | DX: M19.072 Primary osteoarthritis, left ankle and foot (principal); R22.42 Localized swelling, mass and lump, left lower limb ==

== ENCOUNTER → 2023-07-05 | Outpatient (REF) | payer BC, OTHER | LOC: M LAB REF 12:59 | PROVIDERS: ATTEND Registered Nurse | DX: R30.0 Dysuria (principal); R35.0 Frequency of micturition ==

== ENCOUNTER → 2024-01-17 | Outpatient (REF) | payer OTHER ==
[2024-01-17 13:34] LABS: BASO # 0.1 10^3/uL (0.0-0.2); BASO % 0.9 % (0.0-1.0); EOS # 0.2 10^3/uL (0.0-0.5); EOS % 2.7 % (0.0-3.0); HEMATOCRIT 46.3 % (36.0-47.0); HEMOGLOBIN 14.5 g/dl (12.0-15.5); LYMPH # 1.6 10^3/uL (1.5-5.0); LYMPH % 28.3 % (24.0-44.0); MEAN CORPUSCULAR HEMOGLOBIN 29.2 pg (27.0-33.0); MEAN CORPUSCULAR HGB CONC 31.3 g/dl (32.0-36.5); MEAN CORPUSCULAR VOLUME 93.3 fl (80.0-96.0); MONO # 0.5 10^3/uL (0.0-0.8); MONO % 8.4 % (2.0-8.0); NEUTROPHILS # 3.3 10^3/uL (1.5-8.5); NEUTROPHILS % 59.3 % (36.0-66.0); PLATELET COUNT, AUTOMATED 207 10^3/uL (150-450); RED BLOOD COUNT 4.96 10^6/uL (4.00-5.40); WHITE BLOOD COUNT 5.5 10^3/uL (4.0-10.0)
[2024-01-17 13:41] LABS: ALBUMIN 3.4 G/DL (3.2-5.2); ALKALINE PHOSPHATASE 150 U/L (46-116); ALT/SGPT 9 U/L (7.0-40); AST/SGOT 12 U/L (<34); BILIRUBIN,TOTAL 0.4 MG/DL (0.3-1.2); BLOOD UREA NITROGEN 18 MG/DL (9-23); CALCIUM LEVEL 9.9 MG/DL (8.3-10.6); CARBON DIOXIDE LEVEL 27 MMOL/L (20-31); CHLORIDE LEVEL 109 MMOL/L (98-107); CHOLESTEROL LEVEL 101 MG/DL (<200); CHOLESTEROL RISK RATIO 2.65 (<5); CREATININE FOR GFR 0.96 MG/DL (0.55-1.30); GLOMERULAR FILTRATION RATE > 60.0 (>45); GLUCOSE, FASTING 91 MG/DL (74-106); HDL CHOLESTEROL 38.1 MG/DL (>40); LDL CHOLESTEROL 39.3 MG/DL (<100); NON-HDL-C 62.9 MG/DL; POTASSIUM SERUM 4.1 MMOL/L (3.5-5.1); SODIUM LEVEL 143 MMOL/L (136-145); TOTAL PROTEIN 6.3 G/DL (5.7-8.2); TRIGLYCERIDES LEVEL 118 MG/DL (<150)
[2024-01-17 14:20] LABS: THYROID STIMULATING HORMONE 1.218 uIU/ML (0.55-4.78)
== END ==
LOC: M LABDRWAD 12:29
PROVIDERS: ATTEND Family Medicine
DX: E03.9 Hypothyroidism, unspecified (principal); I25.10 Atherosclerotic heart disease of native coronary artery without angina pectoris

== ENCOUNTER → 2024-06-18 | Outpatient (CLI) | payer MEDICARE, BC ==
[~2024-06-18] MED LIST changes: +CLOP75TA2; +JARD1TAB; +LEVO88TA3; +LOSA50TA28; +METO1TAB33; +PEPC10TA6 PO; +SPIR-10
== END ==
LOC: M WHC 13:00
PROVIDERS: ATTEND Family Medicine
DX: Z12.31 Encounter for screening mammogram for malignant neoplasm of breast (principal)

== ENCOUNTER 2024-06-23 10:39 | Emergency (ER) | payer MEDICARE, BC ==
[~2024-06-23] VITALS: Ht 160 cm; Wt 47.3 kg
[~2024-06-23 10:39] MED LIST changes: -CLOP75TA2; -JARD1TAB; -LEVO88TA3; -LOSA50TA28; -METO1TAB33; -PEPC10TA6 PO; -SPIR-10
[2024-06-23] MEDS ORDERED: SPIR-10 (11:09)
[2024-06-23] MEDS ORDERED: JARD1TAB (11:09)
[2024-06-23] MEDS ORDERED: METO1TAB33 (11:09)
[2024-06-23] MEDS ORDERED: LEVO88TA3 (11:09)
[2024-06-23] MEDS ORDERED: LOSA50TA28 (11:09)
[2024-06-23] MEDS ORDERED: PEPC10TA6 PO (11:09)
[2024-06-23] MEDS ORDERED: CLOP75TA2 (11:09)
[2024-06-23 15:22] LABS: BASO # 0.1 10^3/uL (0.0-0.2); BASO % 1.2 % (0.0-1.0); EOS # 0.1 10^3/uL (0.0-0.5); EOS % 2.5 % (0.0-3.0); HEMATOCRIT 46.2 % (36.0-47.0); HEMOGLOBIN 14.8 g/dl (12.0-15.5); LYMPH # 1.4 10^3/uL (1.5-5.0); LYMPH % 23.9 % (24.0-44.0); MEAN CORPUSCULAR HEMOGLOBIN 30.5 pg (27.0-33.0); MEAN CORPUSCULAR VOLUME 95.3 fl (80.0-96.0); MONO # 0.3 10^3/uL (0.0-0.8); MONO % 5.6 % (2.0-8.0); NEUTROPHILS # 3.8 10^3/uL (1.5-8.5); NEUTROPHILS % 66.6 % (36.0-66.0); PLATELET COUNT, AUTOMATED 212 10^3/uL (150-450); RED BLOOD COUNT 4.85 10^6/uL (4.00-5.40); WHITE BLOOD COUNT 5.7 10^3/uL (4.0-10.0)
[2024-06-23 15:35] LABS: INR 1.1; PARTIAL THROMBOPLASTIN TIME 27.6 SECONDS (24.8-34.2); PROTHROMBIN TIME 13.9 SECONDS (12.5-14.5)
[2024-06-23 15:44] LABS: BLOOD UREA NITROGEN 15 MG/DL (9-23); CALCIUM LEVEL 10.2 MG/DL (8.3-10.6); CARBON DIOXIDE LEVEL 27 MMOL/L (20-31); CHLORIDE LEVEL 107 MMOL/L (98-107); CREATININE FOR GFR 0.89 MG/DL (0.55-1.30); GLOMERULAR FILTRATION RATE > 60.0 (>45); GLUCOSE, FASTING 87 MG/DL (74-106); POTASSIUM SERUM 4.4 MMOL/L (3.5-5.1); SODIUM LEVEL 140 MMOL/L (136-145)
[2024-06-23 17:05] VITALS: BP 105/61; TEMP 97.7; O2SAT 99
== END 2024-06-23 16:58 | disposition home or self-care (01) ==
LOC: M ED 10:39
DX: M79.672 Pain in left foot (principal); I25.10 Atherosclerotic heart disease of native coronary artery without angina pectoris; I25.2 Old myocardial infarction; J44.9 Chronic obstructive pulmonary disease, unspecified; Z87.891 Personal history of nicotine dependence; Z79.82 Long term (current) use of aspirin; Z79.899 Other long term (current) drug therapy; Z88.5 Allergy status to narcotic agent; Z88.8 Allergy status to other drugs, medicaments and biological substances

== ENCOUNTER → 2024-07-03 | Outpatient (REF) | payer MEDICARE, OTHER ==
[~2024-07-03] MED LIST changes: +CLOP75TA2; +JARD1TAB; +LEVO88TA3; +LOSA50TA28; +METO1TAB33; +PEPC10TA6 PO; +SPIR-10
[2024-07-03 15:30] LABS: FREE T4 1.5 NG/DL (0.89-1.76); THYROID STIMULATING HORMONE 1.555 uIU/ML (0.55-4.78)
== END ==
LOC: M LABDRWAD 13:08
PROVIDERS: ATTEND Family Medicine
DX: E03.9 Hypothyroidism, unspecified (principal)

== ENCOUNTER → 2025-03-23 | Outpatient (REF) | payer MEDICARE, BC ==
[~2025-03-23] MED LIST changes: +AMOX875T2 PO; +ANOR1AER PO; -CLOP75TA2; -JARD1TAB; +JARD1TAB PO; -LOSA50TA28; +LOSA50TA28 PO; -METO1TAB33; +METO1TAB33 PO; -SPIR-10; +SPIR-10 PO
[2025-03-23 15:12] LABS: ALT/SGPT 15.0 U/L (7.0-40); AST/SGOT 20.0 U/L (<34); CALCIUM LEVEL 9.6 MG/DL (8.3-10.6); CARBON DIOXIDE LEVEL 25.0 MMOL/L (20-31); CHLORIDE LEVEL 108.0 MMOL/L (98-107); CHOLESTEROL LEVEL 112.0 MG/DL (<200); CHOLESTEROL RISK RATIO 2.77 (<5); CREATININE FOR GFR 0.93 MG/DL (0.55-1.30); FREE T4 1.35 NG/DL (0.89-1.76); GLOMERULAR FILTRATION RATE 67.8 (>45); LDL CHOLESTEROL 46.4 MG/DL (<100); NON-HDL-C 71.6 MG/DL; POTASSIUM SERUM 4.1 MMOL/L (3.5-5.1); SODIUM LEVEL 143.0 MMOL/L (136-145); TOTAL 25(OH) VITAMIN D 57.5 NG/ML (20.0-100.0); TRIGLYCERIDES LEVEL 126.0 MG/DL (<150)
== END ==
LOC: M LABDRWAD 13:25
PROVIDERS: ATTEND Nurse Practitioner Family
DX: I10 Essential (primary) hypertension (principal); E03.9 Hypothyroidism, unspecified; E78.2 Mixed hyperlipidemia; M81.8 Other osteoporosis without current pathological fracture